=== PATIENT | male | born 1985 | race Caucasian/White ===

== ENCOUNTER 2017-02-18 17:39 | Emergency (ER) | payer OTHER ==
[~2017-02-18 17:39] MED LIST: BENZ1TAB PO; HALO1TAB25 PO
[2017-02-18 19:28] LABS: AMPHETAMINE, URINE NEG (NEG); BARBITURATES, URINE NEG (NEG); COCAINE, URINE POS (NEG)
[2017-02-18 19:56] LABS: AUTOMATED NEUTROPHIL # 3.3 TH/MM3 (1.8-7.7); BASOPHIL % 0.6 % (0.0-2.0); EOSINOPHIL # 0.2 TH/MM3 (0-0.4); EOSINOPHIL % 3.1 % (0.0-4.0); HEMATOCRIT 42.8 % (39.0-51.0); HEMO FLAGS DIFF FINAL; LYMPHOCYTE # 2.2 TH/MM3 (1.0-4.8); MEAN CELL VOLUME 92.8 FL (80.0-100.0); MEAN CORPUSCULAR HEMOGLOBIN 31.8 PG (27.0-34.0); MEAN CORPUSCULAR HGB CONC 34.3 % (32.0-36.0); MONO % 11.8 % (0.0-8.0); NEUT % 50.5 % (16.0-70.0); PLATELET COUNT 258 TH/MM3 (150-450); RED BLOOD COUNT 4.61 MIL/MM3 (4.50-5.90); RED CELL DISTRIBUTION WIDTH 14.1 % (11.6-17.2); WHITE BLOOD COUNT 6.5 TH/MM3 (4.0-11.0)
[2017-02-18 20:15] LABS: ANION GAP 5 MEQ/L (5-15)
[2017-02-18 20:18] LABS: ACETAMINOPHEN LESS THAN 2.0 MCG/ML (10.0-30.0); ALKALINE PHOSPHATASE 61 U/L (45-117); ALT (GPT) 23 U/L (12-78); AST (GOT) 18 U/L (15-37); BICARBONATE 30.7 MEQ/L (21.0-32.0); BLOOD UREA NITROGEN 8 MG/DL (7-18); CHLORIDE 106 MEQ/L (98-107); GLOMERULAR FILTRATION RATE 72 ML/MIN (>89); POTASSIUM 5.2 MEQ/L (3.5-5.1); SODIUM (NA) 142 MEQ/L (136-145); TOTAL BILIRUBIN ADULT 0.6 MG/DL (0.2-1.0)
--- NOTE | 2017-02-18 20:41 | PD ---
HPI Chief Complaint: Psychiatric Symptoms Time Seen by Provider: 20:35 Travel History International Travel<30 days: No Contact w/Intl Traveler<30days: No Traveled to known affect area: No History of Present Illness HPI 32-year-old male that presents to the ED for evaluation of psych. Patient was EXPARTE secondary to noncompliance and having a history of substance abuse. Patient denies any of this and states that he has no issues. My physical examination he is under the covers and he would not really speak to me much. He will answer yes or no questions however. He denies any other medical problems. He does state that he did drank alcohol recently. Per EXPARTE he has been using cocaine and other drugs. Denies any chest pain or shortness of breath. Other medical process. He does apparently has a history of schizoaffective disorder and is to take medications for this but apparently he is noncompliant. He is also apparently acting bizarre but again history is limited as patient will not be forthcoming with information to me. He denies any suicidal or homicidal ideation to me. PFSH Past Medical History Depression: Yes Diminished Hearing: No Psychiatric: Yes Schizophrenia: No (LISTED IN PMH BUT PT DENIES) Past Surgical History Other Surgery: Yes (skin grafts in childhood) Social History Alcohol Use: Yes (social use, nothing recent) Tobacco Use: Yes ("now and then") Substance Use: Yes (records indicate hx PSA, patient denies anything recent) Allergies-Medications (Allergen,Severity, Reaction): Coded Allergies: No Known Allergies (Verified , 03/23/11) Reported Meds & Prescriptions Reported Meds & Active Scripts Active Reported Haldol (Haloperidol) 2 Mg Tab 2 Mg PO BID Cogentin (Benztropine Mesylate) 1 Mg Tab 1 Mg PO BID Review of Systems Except as stated in HPI: all other systems reviewed are Neg Physical Exam Narrative GENERAL: SKIN: Warm and dry. HEAD: Atraumatic. Normocephalic. EYES: Pupils equal and round. No scleral icterus. No injection or drainage. ENT: No nasal bleeding or discharge. Mucous membranes pink and moist. Tongue is midline. No uvula deviation. NECK: Trachea midline. No JVD. CARDIOVASCULAR: Regular rate and rhythm. No murmurs, S3, S4. RESPIRATORY: No accessory muscle use. Clear to auscultation. Breath sounds equal bilaterally. GASTROINTESTINAL: Abdomen soft, non-tender, nondistended. Hepatic and splenic margins not palpable. MUSCULOSKELETAL: Extremities without clubbing, cyanosis, or edema. No obvious deformities. Full range of motion of the upper and lower extremities bilaterally. 2+ pulses bilaterally. NEUROLOGICAL: Awake and alert. No obvious cranial nerve deficits. Motor grossly within normal limits. Five out of 5 muscle strength in the arms and legs. Normal speech. PSYCHIATRIC: Appropriate mood and affect; insight and judgment normal. Data Data Orders Complete Blood Count With Diff (02/18/17 19:01) Comprehensive Metabolic Panel (02/18/17 19:) Psych Screen (02/18/17 19:) Drug Screen, Random Urine (02/18/17:) Alcohol (Ethanol) (02/18/17 19:) Salicylates (Aspirin) (02/18/17 19:) Tylenol (Acetaminophen) (02/18/17 19:) Labs Laboratory Tests Test 02/18/17 02/18/17 17:49 19:30 Urine Opiates Screen NEG Urine Barbiturates Screen NEG Urine Amphetamines Screen NEG Urine Benzodiazepines Screen NEG Urine Cocaine Screen POS Urine Cannabinoids Screen POS White Blood Count 6.5 TH/MM3 Red Blood Count 4.61 MIL/MM3 Hemoglobin 14.7 GM/DL Hematocrit 42.8 % Mean Corpuscular Volume 92.8 FL Mean Corpuscular Hemoglobin 31.8 PG Mean Corpuscular Hemoglobin 34.3 % Concent Red Cell Distribution Width 14.1 % Platelet Count 258 TH/MM3 Mean Platelet Volume 7.7 FL Neutrophils (%) (Auto) 50.5 % Lymphocytes (%) (Auto) 34.0 % Monocytes (%) (Auto) 11.8 % Eosinophils (%) (Auto) 3.1 % Basophils (%) (Auto) 0.6 % Neutrophils # (Auto) 3.3 TH/MM3 Lymphocytes # (Auto) 2.2 TH/MM3 Monocytes # (Auto) 0.8 TH/MM3 Eosinophils # (Auto) 0.2 TH/MM3 Basophils # (Auto) 0.0 TH/MM3 CBC Comment DIFF FINAL Differential Comment Salicylates Level 3.0 MG/DL MDM Medical Decision Making Medical Screen Exam Complete: Yes Emergency Medical Condition: Yes Medical Record Reviewed: Yes Interpretation(s) CBC Diagram 02/18/17 19:30 tox screen positive for cocaine and benzos CMP WNL Differential Diagnosis Depression versus suicidal ideation versus anxiety versus adjustment disorder versus mood disorder versus bipolar disorder versus schizophrenia versus paranoid disorder versus psychosis versus substance abuse versus alcohol abuse versus alcohol induced psychosis versus homicidality addition versus cutting versus personality disorder Narrative Course 32-year-old male that presents to the ED for evaluation of psych. Patient was properly examined and was found to have signs and symptoms consistent appears to be psychiatric illness. No sign of acute medical distress. Patient was medically cleared. Okay to be seen by psych. Mental health screening was discussed with the patient. Diagnosis Primary Impression: Schizoaffective disorder Qualified Code: F25.8 - Other schizoaffective disorders Additional Impression: Substance abuse Alek Camacho Feb 18, 2017 20:41
[2017-02-19 02:27] VITALS: BP 139/60; PULSE 80; RESP 16; O2SAT 100
[2017-02-19 06:29] VITALS: BP 110/65; PULSE 52; RESP 17; O2SAT 97
[2017-02-19] MEDS ORDERED: BENZ1TAB PO (11:37)
[2017-02-19] MEDS ORDERED: HALO10TA PO (11:37)
[2017-02-19 13:05] VITALS: BP 126/61; PULSE 55; RESP 18
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
[2017-02-19 20:58] VITALS: BP 112/63; PULSE 55; RESP 16; O2SAT 97
== END 2017-02-19 21:15 ==
LOC: NEDAMB 17:39 → NEPJ 02-19 21:15
DX: F20.9 Schizophrenia, unspecified (principal); F17.210 Nicotine dependence, cigarettes, uncomplicated; Z91.19 Patient's noncompliance with other medical treatment and regimen
CPT/HCPCS: 80053; 80307; 85025; 99285

== ENCOUNTER 2017-05-29 12:45 | Inpatient (IN) | payer BC ==
[~2017-05-29] VITALS: Ht 175.3 cm; Wt 59.4 kg
[~2017-05-29 12:45] MED LIST changes: +HALO10TA PO; -HALO1TAB25 PO
[2017-05-29 13:04] VITALS: BP 122/63; PULSE 65; RESP 19; TEMP 98.8; O2SAT 97
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
[2017-05-29] MEDS ORDERED: SODIUM CHLORIDE 0.9% FLUSH 10 ML FLUSH IVF PRN (13:15)
[2017-05-29 13:17] VITALS: BP_SYST 122; BP_SYST 128; BP_DIAS 63; BP_DIAS 65; O2SAT 98
[2017-05-29 13:44] LABS: AUTOMATED NEUTROPHIL # 7.2 TH/MM3 (1.8-7.7); BASOPHIL % 0.3 % (0.0-2.0); EOSINOPHIL # 0.1 TH/MM3 (0-0.4); EOSINOPHIL % 1.1 % (0.0-4.0); HEMATOCRIT 46.1 % (39.0-51.0); HEMO FLAGS DIFF FINAL; LYMPH % 20.3 % (9.0-44.0); MEAN CELL VOLUME 92.1 FL (80.0-100.0); MEAN CORPUSCULAR HEMOGLOBIN 31.8 PG (27.0-34.0); MEAN CORPUSCULAR HGB CONC 34.5 % (32.0-36.0); MONO % 6.3 % (0.0-8.0); PLATELET COUNT 255 TH/MM3 (150-450); RED BLOOD COUNT 5.01 MIL/MM3 (4.50-5.90); RED CELL DISTRIBUTION WIDTH 13.2 % (11.6-17.2); WHITE BLOOD COUNT 9.9 TH/MM3 (4.0-11.0)
[2017-05-29 13:54] LABS: APTT (PATIENT) 28.5 SEC (24.3-30.1); PROTHROMBIN TIME - PATIENT 10.8 SEC (9.8-11.6)
[2017-05-29 13:55] LABS: AMPHETAMINE, URINE NEG (NEG); BARBITURATES, URINE NEG (NEG); COCAINE, URINE NEG (NEG)
[2017-05-29 14:02] LABS: ANION GAP 10 MEQ/L (5-15); AST (GOT) 15 U/L (15-37); BLOOD UREA NITROGEN 9 MG/DL (7-18); CHLORIDE 102 MEQ/L (98-107); GLOMERULAR FILTRATION RATE 87 ML/MIN (>89); POTASSIUM 3.6 MEQ/L (3.5-5.1); SODIUM (NA) 137 MEQ/L (136-145)
[2017-05-29 14:08] LABS: ALKALINE PHOSPHATASE 89 U/L (45-117); ALT (GPT) 15 U/L (12-78); TOTAL BILIRUBIN ADULT 1.2 MG/DL (0.2-1.0)
[2017-05-29 14:09] LABS: CREATINE KINASE 95 U/L (39-308)
--- NOTE | 2017-05-29 14:18 | RADRPT ---
EXAM DATE/TIME: 05/29/2017 13:16 [facility] COMPARISON: No previous studies available for comparison. INDICATIONS : Chest pain. MEDICAL HISTORY : None. SURGICAL HISTORY : None. ENCOUNTER: Initial ACUITY: 1 day PAIN SCORE: 10 LOCATION: Bilateral chest FINDINGS: 2 AP views of the chest demonstrate normal-sized cardiac silhouette. Lungs are hyperinflated. No effu smita, consolidation, or pneumothorax is visualized. The bones and soft tissues demonstrate no acute f inding. CONCLUSION: No acute cardiopulmonary abnormality is identified. Nino Tran MD on May 29, 2017 at 14:15 Board Certified Radiologist. This report was verified electronically.
[2017-05-29] MEDS ORDERED: diphenhydrAMINE HCL 50 MG CAP PO ONE (23:45)
[2017-05-30 02:24] VITALS: BP 100/51; PULSE 60; RESP 18; O2SAT 97
[2017-05-30 06:30] VITALS: BP 118/55; PULSE 61; RESP 18; O2SAT 98
[2017-05-30 10:32] VITALS: BP 116/68; PULSE 69; RESP 18
--- NOTE | 2017-05-30 12:17 | EKG ---
Date Performed: 05/29/2017 Time Performed: 13:04:24 PTAGE: 32 years EKG: Sinus rhythm Since previous tracing, no significant change noted NORMAL ECG PREVIOUS TRACING : 03/17/2004 16.48 DOCTOR: Hernan Lynch Interpretating Date/Time 05/30/2017 12:15:47
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
[2017-05-30] MEDS ORDERED: ALUMINUM/MAGNESIUM/SIMETH 30 ML CUP PO PRN (14:00)
[2017-05-30] MEDS ORDERED: ACETAMINOPHEN 325 MG TAB PO PRN (14:00)
[2017-05-30] MEDS ORDERED: MAGNESIUM HYDROXIDE SUSP 30 ML CUP PO PRN (14:00)
[2017-05-30 14:45] VITALS: BP 98/61; PULSE 56; RESP 16; TEMP 98.6; O2SAT 96
[2017-05-30] MEDS ORDERED: LORazepam 2 MG/ML VIAL IM PRN ×2 (16:00→16:15)
[2017-05-30] MEDS ORDERED: LORazepam 1 MG TAB PO PRN (16:00)
[2017-05-30] MEDS ORDERED: LORazepam 0.5 MG TAB PO PRN (16:00)
[2017-05-30] MEDS ORDERED: HALOPERIDOL 10 MG TAB PO SCH (21:00)
[2017-05-30] MEDS ORDERED: BENZTROPINE MESYLATE 1 MG TAB PO SCH (21:00)
[2017-05-31 05:34] VITALS: BP 83/51; PULSE 54; RESP 18; TEMP 97.6; O2SAT 95
[2017-05-31] MEDS ORDERED: HALOPERIDOL 10 MG TAB PO SCH (09:00)
[2017-05-31] MEDS ORDERED: BENZTROPINE MESYLATE 1 MG TAB PO SCH (09:00)
[2017-05-31 09:54] LABS: ANION GAP 7 MEQ/L (5-15); BICARBONATE 28.4 MEQ/L (21.0-32.0); BLOOD UREA NITROGEN 19 MG/DL (7-18); CHLORIDE 105 MEQ/L (98-107); GLOMERULAR FILTRATION RATE 69 ML/MIN (>89); SODIUM (NA) 140 MEQ/L (136-145)
[2017-05-31 09:57] LABS: HDL CHOLESTEROL 45.8 MG/DL (40.0-60.0); LDL CHOLESTEROL 140 MG/DL (0-99)
--- NOTE | 2017-05-31 10:39 | HHI.HP ---
Provisional Diagnosis Admission Date May 30, 2017 at 13:56 [place] I. Adjustment disorder with depressed mood, R/o malingering [place] II. Unspecified personality disorder, antisocial personality disorder [place] III. No significant medical history Certification of Person's Competence To Provide Express and Informed Consent I have personally examined Seb Rojas II , a person being served at [facility] on, May 31, 2017 10:22. Express and informed consent means consent voluntarily given in writing, by a competent person, after sufficient explanation and disclosure of the subject matter involved to enable the person to make a knowing and willful decision without any element of force, fraud, deceit, duress, or other form of constraint or coercion. This person is 18 years of age or older, is not now known to be incompetent to consent to treatment with a guardian advocate, and does not have a health care surrogate or proxy currently making medical treatment decisions. I have found this person to be one of the following: [X] Competent to provide express and informed consent, as defined above, for voluntary admission to this facility and is competent to provide express and informed consent for treatment. He/she has the consistent capacity to make well reasoned, willful, and knowing decisions concerning his or her medical or mental health treatment. The person fully and consistently understands the purpose of the admission for examination/placement and is fully capable of personally exercising all rights assured under [place] [] Incompetent to provide express and informed consent to voluntary admission, and this is incompetent to provide express and informed consent to treatment. The person must be transferred to involuntary status and a petition for a guardian advocate filed with the Circuit Court. [] Refusing to provide express and informed consent to voluntary admission but is competent to provide express and informed consent for treatment. The person must be discharged or transferred to involuntary status. Form shall be completed within 24 hours of a person's arrival at the receiving facility and filed in the clinical record of each person: 1. Admitted on a voluntary basis 2. Permitted to provide express and informed consent to his/her own treatment 3. Allowed to transfer from involuntary to voluntary status 4. Prior to permitting a person to consent to his or her own treatment after having been previously found incompetent to consent to treatment. History of Present Illness Capacity: Has Capacity HPI ER documentation : 32-year-old male with history of depression and schizophrenia on a voluntary basis here with complaints of chest pain and recent onset of suicidal ideation. Ed documentation is reviewed and included in this report " Patient says that he just all of a sudden started thinking that it would be best if he jumped off of a bridge or hung himself. He tells me that he does not want to harm himself, therefore he decided to come to the emergency department for evaluation. He also reports that he had problems with intermittent chest pain, and thinks it's more so in the back of his lungs. This is been going on for the past 4 years. Tells me that the pain is always present and deep within his rib cage. He describes it as a sharp pain in the left sided rib cage without further radiation. He denies any nausea, vomiting, shortness of breath or diaphoresis. Here with his power of trademark attorney.I personally spoke to the Power of Tour Driver, who says he may be gaining guardianship over this patient again. Apparently patient has been under his care for the past 15 years. Patient's father and patient had no other relatives. He does have a daughter, but she does not live locally. Patient has suffered from schizophrenia and psychotic episodes, but per power of trademark attorney he is never reported thoughts of self-harm. Apparently he has to hold power of trademark attorney that he has walked to the [place] on several occasions in thought of jumping off, but has not done so. In regards this chest pain, power of trademark attorney has no information other than patient has been complaining about this for quite some time. Patient is a known drug user. Power of trademark attorney states that he may have most recently used drugs within the past 2 months. Apparently had a binge of cocaine and blue through $12,000 in 8 days. Patient no longer has access to his funds to purchase drugs, but does have many friends who visit him and may very well provide various substances." EMR is reviewed. [place] [facility] [place] 2002 with several hospitalizations under the care of Dr Sullivan as well as Dr. Torres. The patient was monitored in J pod and he did not present any behavioral concerns and no suicidality. He is calm. Speech is clear and logical. he is initially non cooperative with examination responding " i don't have to tell you about my whole life and my story". It was explained to him that in order to make a determination of his safety I needed to have answers to several questions as well as that I needed to have information from his POA. He then agrees to engage in examination. He denies that he is suicidal at this time. He states that he came to the hospital because he was having chest pain and he " said things I should not have said. I was having a bad d ay that's all. I was also having a bad day since it was the birthday of my ex fiancee". He denies any hallucinations.Reports medication compliance. Denies current substance use and current toxicology is negative. he contracts for safety if he were to be discharged.I spoke with his POA Tour Driver Sincere Ruff who reports that he is very concerned for the safety of this patient as he has told him that he has walked to to the middle of a bridge five times in the past month and that last noc he actually got on top of the bridge. he has also reported that he has been having thoughts of hanging himself. he goes on to state " If you release him from the hospital and something were to happen to him I will personally cholo you as well as cholo the hospital ". The patient is a 32-year-old man, domiciled alone, single, unemployed , with psychiatric history of schizophrenia, multiple psychiatric hospitalizations, he has outpatient care with Dr. Mckeon, he is on Haldol 10 mg at bedtime, benztropine 1 mg twice a day, previous suicidal attempts, history of multiple incarcerations "due to drug issues", nose and medical medical history, who was admitted in voluntary basis due to suicidal ideation. On psychiatric evaluation today patient states that he is ready to go back home. He described his mood as very good, he says that yesterday he expressed suicidal ideation in the ER "because I wanted to expedite my medical care and a wanted the doctors to [place] up, but I did not have any suicidal intentions". When patient was confronted about using suicidal ideation to manipulate the system he says that he knows very well the system "because he has been hospitalized multiple times, I have been in [facility] over 10 times and I know what to say in ER in order to get attention faster". At this moment the patient denies suicidal and homicidal ideation, he denies visual and auditory hallucinations. No paranoia, no delusions, no bizarre behavior or thoughts, no agitation or aggressive behavior reported or noted. Review of Systems Constitutional: DENIES: Diaphoretic episodes, Fatigue, Fever, Weight gain, Weight loss, Chills, Dizziness, Change in appetite, Night Sweats Endocrine: DENIES: Heat/cold intolerance, Polydipsia, Polyuria, Polyphagia Eyes: DENIES: Blurred vision, Diplopia, Eye inflammation, Eye pain, Vision loss , Photosensitivity, Double Vision Ears, nose, mouth, throat: DENIES: Tinnitus, Hearing loss, Vertigo, Nasal discharge, Oral lesions, Throat pain, Hoarseness, Ear Pain, Running Nose, Epistaxis, Sinus Pain, Toothache, Odynophagia Respiratory: DENIES: Apneas, Cough, Snoring, Wheezing, Hemoptysis, Sputum production, Shortness of breath Cardiovascular: DENIES: Chest pain, Palpitations, Syncope, Dyspnea on Exertion , PND, Lower Extremity Edema, Orthopnea, Claudication Gastrointestinal: DENIES: Abdominal pain, Black stools, Bloody stools, Constipation, Diarrhea, Nausea, Vomiting, Difficulty Swallowing, Anorexia Genitourinary: DENIES: Sexual dysfunction, Urinary frequency, Urinary incontinence, Urgency, Hematuria, Dysuria, Nocturia, Penile Discharge, Testicular Pain, Testicular Swelling Musculoskeletal: DENIES: Joint pain, Muscle aches, Stiffness, Joint Swelling, Back pain, Neck pain Hematologic/lymphatic: DENIES: Bruising, Lymphadenopathy Neurologic: DENIES: Abnormal gait, Headache, Localized weakness, Paresthesias, Seizures, Speech Problems, Tremor, Poor Balance Psychiatric: DENIES: Anxiety, Confusion, Mood changes, Depression, Hallucinations, Agitation, Suicidal Ideation, Homicidal Ideation, Delusions Substance Abuse History Drugs/Alcohol past 12 months Patient denies the use of alcohol and illicit drugs Past Family Social History Coded Allergies: No Known Allergies (Verified , 05/30/17) Reported Medications Benztropine 1 Mg Tab1 Mg PO DAILY #30 TAB Ref 0 02/19/17 Haloperidol 10 Mg Tab15 Mg PO DAILY Ref 0 02/19/17 Current Medications Medications (Trade) Dose Ordered Sig/[place] Route Start Time Stop Time Status Last Admin (NS Flush) 2 ml UNSCH PRN IVF 05/29/17 13:15 (Tylenol) 650 mg Q4H PRN PO 05/30/17 14:00 (Milk Of Magnesia Liq) 30 ml DAILY PRN PO 05/30/17 14:00 (Mag-Al Plus Susp Liq) 30 ml Q6H PRN PO 05/30/17 14:00 (Ativan) 1 mg Q6H PRN PO 05/30/17 16:00 (Ativan Inj) 1 mg Q6H PRN IM 05/30/17 16:00 (Haldol) 10 mg HS PO 05/30/17 21:00 05/30/17 21:02 (Cogentin) 1 mg HS PO 05/30/17 21:00 05/30/17 21:02 (Ativan) 0.5 mg Q12H PRN PO 05/30/17 16:00 (Ativan Inj) 0.5 mg Q12H PRN IM 05/30/17 16:15 (Cogentin) 1 mg DAILY PO 05/31/17 09:00 (Haldol) 15 mg DAILY PO 05/31/17 09:00 Family History Patient denies family psychiatric history Social History Patient was born and raised in [facility], he lives alone in [place], he is single, unemployed, his highest level of education is fifth grade Patient's Strengths (min. 2) Verbal communication Physical Exam No psychomotor agitation or retardation, no tremors, no withdrawal, no stiffness , no gait disturbance noted Vital Signs Vital Signs Date Time Temp Pulse Resp B/P Pulse Ox O2 Delivery O2 Flow Rate FiO2 05/31/17 05:34 97.6 54 18 83/51 95 05/30/17 10:32 Room Air Lab Results Laboratory Tests Test 05/29/17 05/29/17 05/29/17 13:15 13:20 16:45 White Blood Count 9.9 Red Blood Count 5.01 Hemoglobin 15.9 Hematocrit 46.1 Mean Corpuscular Volume 92.1 Mean Corpuscular Hemoglobin 31.8 Mean Corpuscular Hemoglobin 34.5 Concent Red Cell Distribution Width 13.2 Platelet Count 255 Mean Platelet Volume 7.4 Neutrophils (%) (Auto) 72.0 Lymphocytes (%) (Auto) 20.3 Monocytes (%) (Auto) 6.3 Eosinophils (%) (Auto) 1.1 Basophils (%) (Auto) 0.3 Neutrophils # (Auto) 7.2 Lymphocytes # (Auto) 2.0 Monocytes # (Auto) 0.6 Eosinophils # (Auto) 0.1 Basophils # (Auto) 0.0 CBC Comment DIFF FINAL Differential Comment Prothrombin Time 10.8 Prothromb Time International 1.0 Ratio Activated Partial 28.5 Thromboplast Time Sodium Level 137 Potassium Level 3.6 Chloride Level 102 Carbon Dioxide Level 25.0 Anion Gap 10 Blood Urea Nitrogen 9 Creatinine 0.99 Estimat Glomerular Filtration 87 Rate Random Glucose 82 Calcium Level 8.9 Magnesium Level 2.0 Total Bilirubin 1.2 Aspartate Amino Transf 15 (AST/SGOT) Alanine Aminotransferase 15 (ALT/SGPT) Alkaline Phosphatase 89 Total Creatine Kinase 95 Troponin I LESS THAN 0.02 LESS THAN 0.02 Total Protein 7.6 Albumin 4.3 Lipase 102 Ethyl Alcohol Level LESS THAN 3 Urine Opiates Screen NEG Urine Barbiturates Screen NEG Urine Amphetamines Screen NEG Urine Benzodiazepines Screen NEG Urine Cocaine Screen NEG Urine Cannabinoids Screen NEG Diagnosis Mental Status Examination Appearance man, [facility], age appearing, calm and cooperative Speech: Unremarkable Orientation: x3 Memory: Unremarkable Thought Process: Logical Thought Content: Unremarkable Hallucination Type: None Attention and Concentration: Good Suicidal Ideation: No Previous Suicide Attempts: No Homicidal Ideation: No Previous Homicide Attempts: No Insight: Good Affect: Good Mood: Appropriate Motor Activity: Normal gait Assessment & Plan Problem List: (1) Schizophrenia Assessment & Plan: At the moment of my evaluation today the patient does not present any significant, acute or concerning symptomatology of depression, anxiety, [place] or psychosis. Patient is logical, coherent and relevant. He is oriented 3, without attention deficit or cognitive impairment. Patient doesn' t present any agitation or aggressive behavior at this moment. He denies suicidal and homicidal ideation. He denies visual and auditory hallucinations. Patient expressed that his recent suicidal ideation expressed in the ER were done with the intentions of manipulating the system and getting medical attention faster. He clarifies that he did that because he knows the system due to his multiple previous incarcerations and hospitalizations. On longitudinal observation patient has been calm, cooperative, no problematic in the unit. Last night he requested his dose of Haldol and benztropine and this morning he was the first asking for his breakfast in the unit, as per nurses. There is no evidence to is state that this is a clear case of malicious simulation most probably related with an underlying, not diagnosed personality pathology. He definitely doesn't need psychiatric admission at this moment. Extensive psychoeducation were provided. He will continue psychiatric care as an outpatient with outpatient psychiatrist. ICD Code: F20.9 Assessment & Plan Estimated LOS: days Problem Qualifiers (1) Schizophrenia: Qualified Code: F20.3 - Undifferentiated schizophrenia Adriel Villatoro MD May 31, 2017 10:39
[2017-05-31 12:35] LABS: HEMOGLOBIN A1a 1.2 %; HEMOGLOBIN A1b 1.8 %; HEMOGLOBIN Ao 85.3 %; HEMOGLOBIN LA1C 2.2 %; HEMOGLOBIN P3 3.6 %
== END 2017-05-31 10:45 | disposition home or self-care (01) | DRG 885 ==
LOC: NEPD 12:45 → NEDA 05-30 13:56 → H260 05-30 14:45
PROVIDERS: ADMIT Psychiatry & Neurology Psychiatry; ATTEND Psychiatry & Neurology Psychiatry
DX: F20.3 Undifferentiated schizophrenia (principal); F32.9 Major depressive disorder, single episode, unspecified; F17.210 Nicotine dependence, cigarettes, uncomplicated; R07.89 Other chest pain
CPT/HCPCS: 71010; 80048; 80053; 80061; 80307; 82550; 83036; 83690; 83735; 84484; 85025; 85610; 85730; 93005; Q0163

== ENCOUNTER 2018-04-01 23:02 | Inpatient (IN) | payer BC ==
[~2018-04-01] VITALS: Ht 170.2 cm; Wt 59.8 kg
[2018-04-01 23:11] VITALS: BP 143/89; PULSE 109; PULSE 111; RESP 20; TEMP 97.9; O2SAT 94; O2SAT 95
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
[2018-04-01 23:49] LABS: AUTOMATED NEUTROPHIL # 3.7 TH/MM3 (1.8-7.7); BASOPHIL # 0.1 TH/MM3 (0-0.2); BASOPHIL % 1.1 % (0.0-2.0); EOSINOPHIL # 0.1 TH/MM3 (0-0.4); EOSINOPHIL % 1.5 % (0.0-4.0); HEMATOCRIT 47.6 % (39.0-51.0); HEMOGLOBIN 16.7 GM/DL (13.0-17.0); LYMPH % 28.6 % (9.0-44.0); LYMPHOCYTE # 1.8 TH/MM3 (1.0-4.8); MEAN CELL VOLUME 96.4 FL (80.0-100.0); MEAN CORPUSCULAR HEMOGLOBIN 33.8 PG (27.0-34.0); MEAN PLATELET VOLUME 7.2 FL (7.0-11.0); MONOCYTE # 0.6 TH/MM3 (0-0.9); NEUT % 58.8 % (16.0-70.0); PLATELET COUNT 296 TH/MM3 (150-450); RED BLOOD COUNT 4.93 MIL/MM3 (4.50-5.90); RED CELL DISTRIBUTION WIDTH 14.4 % (11.6-17.2); WHITE BLOOD COUNT 6.3 TH/MM3 (4.0-11.0)
[2018-04-02 00:12] LABS: ALT (GPT) 100 U/L (12-78); AST (GOT) 133 U/L (15-37); BLOOD UREA NITROGEN 7 MG/DL (7-18); CALCIUM 8.7 MG/DL (8.5-10.1); CHLORIDE 104 MEQ/L (98-107); CREATININE 0.98 MG/DL (0.60-1.30); GLOMERULAR FILTRATION RATE 87 ML/MIN (>89); GLUCOSE,RANDOM 92 MG/DL (74-106); SODIUM (NA) 142 MEQ/L (136-145)
[2018-04-02 00:22] LABS: ALKALINE PHOSPHATASE 82 U/L (45-117); TOTAL BILIRUBIN ADULT 2.1 MG/DL (0.2-1.0); TOTAL PROTEIN 7.4 GM/DL (6.4-8.2)
[2018-04-02 05:02] VITALS: BP 132/79; PULSE 16; PULSE 79; RESP 16; O2SAT 98
[2018-04-02] MEDS ORDERED: LORazepam 0.5 MG TAB PO PRN (07:45)
[2018-04-02] MEDS ORDERED: LORazepam 2 MG/ML VIAL IM PRN ×2 (07:45)
[2018-04-02] MEDS ORDERED: LORazepam 2 MG TAB PO PRN (07:45)
[2018-04-02] MEDS ORDERED: ALUMINUM/MAGNESIUM/SIMETH 30 ML CUP PO PRN (07:45)
[2018-04-02] MEDS ORDERED: LORazepam 2 MG/ML VIAL IV PUSH PRN ×4 (07:45)
[2018-04-02] MEDS ORDERED: FLUMAZENIL 0.5 MG/5 ML VIAL IV PUSH PRN (07:45)
[2018-04-02] MEDS ORDERED: LORazepam 1 MG TAB PO PRN ×2 (07:45)
[2018-04-02] MEDS ORDERED: HALOPERIDOL LACTATE 5 MG/ML AMP IM PRN (07:45)
[2018-04-02] MEDS ORDERED: MAGNESIUM HYDROXIDE SUSP 30 ML CUP PO PRN (07:45)
[2018-04-02] MEDS ORDERED: ACETAMINOPHEN 325 MG TAB PO PRN (07:45)
[2018-04-02] MEDS ORDERED: HALOPERIDOL 5 MG TAB PO SCH (09:00)
[2018-04-02 10:10] VITALS: BP 144/93; PULSE 66; RESP 17; TEMP 98
[2018-04-02] MEDS: NICOTINE 21 MG/24 HR PATCH T-DERMAL SCH (12:52)
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
[2018-04-03 06:20] VITALS: BP 130/75; PULSE 68; RESP 17; TEMP 97.4
--- NOTE | 2018-04-03 09:26 | HHI.PYPN ---
Subjective Remarks Chart reviewed and discussed with nursing staff. Night staff reports that patient urinated and defecated all over the room and was walking about naked. He needed frequent redirection. This morning he was sitting in his room on the floor making hand motions in the air. He is internally stimulated. He is refusing to talk to me or his nurse Gris, RN. He is refusing to eat , but will take in fluids. Avoids eye contact and talking to himself. Mental Status Examination Appearance: Appropriate Consciousness: Alert, Other (refusing to make eye contact or respond to questions ) Orientation: Person (makes a gesture when you call his name and will say "what " ) Motor Activity: Normal gait Speech: Hesitant Language: [place] Fund of Knowledge: Adequate Attention and Concentration: Easily Distracted Memory: Impaired (unable to assess as patient will not engage in conversation) Mood: Angry, Irritable Affect: Irritable Thought Process & Associations: Loose associations, Disorganized Thought Content: Bizarre thinking, Hallucinations, Delusional Hallucination Type: Auditory, Visual Delusion Type: Bizarre, Paranoid Suicidal Ideation: No Suicidal Plan: No Suicidal Intention: No Homicidal Ideation: No Homicidal Plan: No Homicidal Intention: No Insight: Poor Judgment: Poor Results Vitals/IOs Vital Signs Date Time Temp Pulse Resp B/P (MAP) Pulse Ox O2 Delivery O2 Flow Rate FiO2 04/03/18 06:20 97.4 68 17 130/75 (93) 04/02/18 05:02 98 Room Air Assessment & Plan Problem List: (1) Schizophrenia ICD Codes: F20.9 - Schizophrenia, unspecified Status: Acute Assessment & Plan Patient is internally stimulated, Talking to himself. Avoiding eye contact. Has been defecating all over his room. Sitting cross legged on the floor and making hand gestures while talking. Estimated LOS: days Justification for Cont. Inpt. Moving patient to a lower level of care may result in his decompensation. Leigh Wu April 03, 2018 09:26
[2018-04-03] MEDS ORDERED: HALOPERIDOL LACTATE 5 MG/ML AMP IM SCH (10:15)
[2018-04-03] MEDS: HALOPERIDOL 5 MG TAB PO SCH ×2 (12:23→21:09)
[2018-04-03] MEDS: NICOTINE 21 MG/24 HR PATCH T-DERMAL SCH (12:53)
[2018-04-03] MEDS: clonazePAM 0.5 MG TAB PO SCH ×2 (15:53→21:09)
[2018-04-03 18:17] VITALS: BP 127/80; PULSE 98; RESP 18; TEMP 97.8; O2SAT 97
[2018-04-03] MEDS: REMOVE OLD NICODERM (NICOTINE) PATCH T-DERMAL SCH (21:09)
[2018-04-04 06:16] VITALS: BP 112/57; PULSE 59; RESP 18; TEMP 98.3; O2SAT 100
[2018-04-04] MEDS: HALOPERIDOL 5 MG TAB PO SCH ×2 (08:54→20:43)
[2018-04-04] MEDS: clonazePAM 0.5 MG TAB PO SCH ×2 (08:54→20:42)
[2018-04-04] MEDS: NICOTINE 21 MG/24 HR PATCH T-DERMAL SCH (09:00)
--- NOTE | 2018-04-04 14:58 | PD.PSY.CON ---
Provisional Diagnosis Admission Date April 02, 2018 at 07:44 [place]. 1. Schizophrenia, paranoid type, acute exacerbation 2. Polysubstance abuse [place]. Deferred History of Present Illness Service Psychiatry Consult Requested By Dr. Villatoro Reason for Consult Second opinion for involuntary psychiatric hospitalization Primary Care Physician No Primary Care Physician HPI From Dr. Villatoro's H&P: The patient is a 33-year-old man, domiciled in [facility] with a roommate , single, unemployed, he has psychiatric history of schizophrenia, alcohol and cocaine use disorder, multiple psychiatric hospitalizations, last hospitalization here in [place] in 2017, documentation was reviewed, history of aggressive behavior, noncompliance, no significant medical history, who presents emergency department under an EX PARTE initiated by his power of finance attorney due to visual and auditory hallucinations, erratic behavior, not taking medications the patient here denies any suicidal or homicidal ideation. EMR was reviewed. The case was discussed with nurse in charge. Utox Akash, BAL 138. On psychiatric evaluation I find the patient that is secluded in his room. Initially very irritable, oppositional, then with redirection he is able to answer my questions, but he seems to be quite suspicious, internally preoccupied and paranoid. Patient is looking constantly to my pen and to my writing as a write. He seems to be quite unpredictable. He says that he is very upset and he does not want to be here. He reports that the police brought him here just to check his blood. "I do not need anything more than having my blood check and then you need to go, I do not need to see any psychiatrist". Patient has to be redirected multiple times in order to make him talk. He reports to be in a good mood, he denies depressive symptoms, he denies anxiety, he denies visual and auditory hallucinations, denies suicidal enemas ideation. The patient is oriented 3. He is very insightless regarding his psychiatric history, he says that he does not have psychiatric problems. He reports that he uses alcohol just sometimes. I confronted him regarding his U tox positive for cocaine, he became verbally hostile stating that he does not use cocaine. As per nurses, the patient has been acting erratically in the unit, laughing inappropriately, talking to himself, walking back and forth. On my examination today, 04/04: Patient seen and examined with nurse. Chart reviewed. Case discussed with nursing staff. On my examination today, the patient reports that he has a history of schizophrenia but is "healed now." Patient presents as quite disheveled and there is feces smeared on the bed and on the floor. He denies any suicidal or homicidal ideation but seems unreliable to contract for safety. He denies audiovisual hallucinations but appears internally stimulated. Paranoia is present. Mood is described as "okay." Remainder of the psychiatric ROS is negative. No acute physical complaints. Past psychiatric history: Patient reports a history of schizophrenia. He reports a history of previous psychiatric admissions, although he is somewhat evasive on the details. He denies any history of suicide attempts. Family history: Patient denies any family history of mental illness. Chemical dependency history: Patient reports that he smokes cigarettes and has the occasional beer. He provides no explanation for the cocaine found in his urine. Social history: The patient reports that he has 1/5 grade education. He collects an inheritance. He is single with one daughter. Review of Systems ROS Limitations: Psychotic, Poor Historian Except as stated in HPI: all other systems reviewed are Neg Past Family Social History Coded Allergies: No Known Allergies (Verified , 05/30/17) Past Medical History See electronic medical record Discontinued Reported Medications Benztropine (Benztropine) 1 Mg Tab, 1 MG PO DAILY, #30 TAB 0 Refills 02/19/17 Haloperidol (Haloperidol) 10 Mg Tab, 15 MG PO DAILY, TAB 0 Refills 02/19/17 Current Medications Medications (Trade) Dose Ordered Sig/[place] Route Start Time Stop Time Status Last Admin (Ativan) 1 mg Q6H PRN PO 04/02/18 07:45 (Ativan Inj) 1 mg Q6H PRN IM 04/02/18 07:45 (Ativan) 0.5 mg Q12H PRN PO 04/02/18 07:45 (Ativan Inj) 0.5 mg Q12H PRN IM 04/02/18 07:45 (Tylenol) 650 mg Q4H PRN PO 04/02/18 07:45 (Milk Of Magnesia Liq) 30 ml DAILY PRN PO 04/02/18 07:45 (Mag-Al Plus Susp Liq) 30 ml Q6H PRN PO 04/02/18 07:45 (Habitrol 21 Mg Patch.24 Hr) 1 patch DAILY T-DERMAL 04/02/18 09:00 04/03/18 12:53 (Romazicon Inj) 0.2 mg Q1M PRN IV PUSH 04/02/18 07:45 (Ativan) 1 mg Q4H PRN PO 04/02/18 07:45 04/03/18 01:46 (Ativan Inj) 1 mg Q4H PRN IV PUSH 04/02/18 07:45 (Ativan) 2 mg Q2H PRN PO 04/02/18 07:45 (Ativan Inj) 2 mg Q2H PRN IV PUSH 04/02/18 07:45 (Ativan Inj) 2 mg Q1H PRN IV PUSH 04/02/18 07:45 (Ativan Inj) 2 mg Q15M PRN IV PUSH 04/02/18 07:45 (Haldol Inj) 5 mg STAT PRN IM 04/02/18 07:45 Future hold (Haldol) 5 mg BID PO 04/03/18 10:15 04/04/18 08:54 (KlonoPIN) 0.5 mg BID PO 04/03/18 13:45 04/04/18 08:54 Miscellaneous Information 1 HS T-DERMAL 04/03/18 21:00 Patient's Strengths (min. 2) In a monitored setting. Verbally fluent. Physical Exam Physical exam completed by ED provider. On my examination today, patient appears to be in no acute physical distress. No motor abnormalities noted. No signs of intoxication or withdrawal noted. Labs and vitals reviewed: Vital Signs Vital Signs Date Time Temp Pulse Resp B/P (MAP) Pulse Ox O2 Delivery O2 Flow Rate FiO2 04/04/18 06:16 98.3 59 18 112/57 (75) 100 04/02/18 05:02 Room Air Lab Results Laboratory Tests Test 04/01/18 23:15 04/02/18 06:20 White Blood Count 6.3 TH/MM3 Red Blood Count 4.93 MIL/MM3 Hemoglobin 16.7 GM/DL Hematocrit 47.6 % Mean Corpuscular Volume 96.4 FL Mean Corpuscular Hemoglobin 33.8 PG Mean Corpuscular Hemoglobin Concent 35.0 % Red Cell Distribution Width 14.4 % Platelet Count 296 TH/MM3 Mean Platelet Volume 7.2 FL Neutrophils (%) (Auto) 58.8 % Lymphocytes (%) (Auto) 28.6 % Monocytes (%) (Auto) 10.0 % Eosinophils (%) (Auto) 1.5 % Basophils (%) (Auto) 1.1 % Neutrophils # (Auto) 3.7 TH/MM3 Lymphocytes # (Auto) 1.8 TH/MM3 Monocytes # (Auto) 0.6 TH/MM3 Eosinophils # (Auto) 0.1 TH/MM3 Basophils # (Auto) 0.1 TH/MM3 CBC Comment DIFF FINAL Differential Comment Blood Urea Nitrogen 7 MG/DL Creatinine 0.98 MG/DL Random Glucose 92 MG/DL Total Protein 7.4 GM/DL Albumin 4.0 GM/DL Calcium Level 8.7 MG/DL Alkaline Phosphatase 82 U/L Aspartate Amino Transf (AST/SGOT) 133 U/L Alanine Aminotransferase (ALT/SGPT) 100 U/L Total Bilirubin 2.1 MG/DL Sodium Level 142 MEQ/L Potassium Level 3.7 MEQ/L Chloride Level 104 MEQ/L Carbon Dioxide Level 24.0 MEQ/L Anion Gap 14 MEQ/L Estimat Glomerular Filtration Rate 87 ML/MIN Thyroid Stimulating Hormone 3rd Gen 1.820 uIU/ML Ethyl Alcohol Level 138 MG/DL Urine Opiates Screen NEG Urine Barbiturates Screen NEG Urine Amphetamines Screen NEG Urine Benzodiazepines Screen NEG Urine Cocaine Screen POS Urine Cannabinoids Screen NEG Transaminitis noted. Mental Status Examination Appearance: Disheveled, Malodorous Consciousness: Alert Orientation: Person (At least) Motor Activity: Normal gait Speech: Hesitant, Slow Language: Adequate Fund of Knowledge: Adequate Attention and Concentration: Easily Distracted Memory: Impaired (Suspect psychosis interferes) Mood: Other (Calm) Affect: Blunt Thought Process & Associations: Circumstantial Thought Content: Hallucinations, Delusional Hallucination Type: Other (Internally stimulated) Delusion Type: Paranoid Suicidal Ideation: No (Unreliable to contract for safety) Homicidal Ideation: No Insight: Poor Judgment: Poor Assessment & Plan Problem List: (1) Schizophrenia ICD Codes: F20.9 - Schizophrenia, unspecified Status: Acute Assessment & Plan Continue Haldol as ordered. Patient would likely benefit from a larger dose of Haldol, and I will check an EKG for QTC before further titrating this agent. Check LFTs in the morning to follow up transaminitis. Continue to monitor on the high acuity unit. Continue other medications and care as ordered. Discharge Planning As ordered by primary psychiatrist Problem Qualifiers (1) Schizophrenia: Qualified Codes: F20.0 - Paranoid schizophrenia Sincere Sheikh MD April 04, 2018 14:58
--- NOTE | 2018-04-04 17:27 | EKG ---
Date Performed: 04/04/2018 Time Performed: 16:51:41 PTAGE: 33 years EKG: Sinus rhythm POSSIBLE RIGHT VENTRICULAR CONDUCTION DELAY BORDERLINE ECG PREVIOUS TRACING : 05/29/2017 13.04 No change from previous tracing noted. DOCTOR: Waldo Valentine Interpretating Date/Time 04/04/2018 17:27:23
[2018-04-04] MEDS: REMOVE OLD NICODERM (NICOTINE) PATCH T-DERMAL SCH (20:43)
[2018-04-05 06:16] VITALS: BP 108/57; PULSE 59; RESP 18; TEMP 97.9; O2SAT 100
[2018-04-05] MEDS: clonazePAM 0.5 MG TAB PO SCH ×2 (08:42→20:37)
[2018-04-05] MEDS: NICOTINE 21 MG/24 HR PATCH T-DERMAL SCH (08:42)
[2018-04-05] MEDS: HALOPERIDOL 5 MG TAB PO SCH (08:42)
--- NOTE | 2018-04-05 12:03 | HHI.PYPN ---
Subjective Remarks Patient seen for follow, chart reviewed. Discussion nursing staff reported the patient with episodes of staring, internally preoccupied, bizarre behavior, exit seeking, states that he is here testing of medications. Patient was found staring into the nurse's station but to be internally preoccupied. Patient states that that he "cracked a couple of meds to see if they are good for their families". Patient to be somewhat paranoid during interview, reports sleeping well, eating and drinking well denies any perceptional services although noted to be internally preoccupied. Patient denies any delusions. Patient states that he had not been taking medications prior to his admission stated he did not need them "as I just drink" which she reports drinking 312 packs daily, denies any marijuana use recently and denies any cocaine use although U tox positive for cocaine. Currently his mood is "good". Review of Systems Except as stated in HPI: all other systems reviewed are Neg Mental Status Examination Appearance: Disheveled, Malodorous Consciousness: Alert Orientation: Person (At least) Motor Activity: Normal gait Speech: Hesitant, Slow Language: Adequate Fund of Knowledge: Adequate Attention and Concentration: Easily Distracted Memory: Impaired (Suspect psychosis interferes) Mood: Other (Calm) Affect: Flat Thought Process & Associations: Circumstantial Thought Content: Hallucinations (Denies today although noted to be internally preoccupied), Delusional Hallucination Type: Other (Internally stimulated) Delusion Type: Paranoid Suicidal Ideation: No (Unreliable to contract for safety) Homicidal Ideation: No Insight: Poor Judgment: Poor Results Vitals/IOs Vital Signs Date Time Temp Pulse Resp B/P (MAP) Pulse Ox O2 Delivery O2 Flow Rate FiO2 04/05/18 06:16 97.9 59 18 108/57 (74) 100 04/02/18 05:02 Room Air Assessment & Plan Problem List: (1) Schizophrenia ICD Codes: F20.9 - Schizophrenia, unspecified Status: Acute Assessment & Plan Patient this time continues to be acutely psychotic, disorganized behavior, making nonsensical statements. We will increase Haldol to 5 mg a.m./10 mg at bedtime, continue rest of medications, continue monitor mood and behavior. Discharge planning in progress. Justification for Cont. Inpt. At risk of further decompensation a lower level of care. Discharge Planning To be determined. Problem Qualifiers (1) Schizophrenia: Qualified Codes: F20.0 - Paranoid schizophrenia Magdiel Zepeda MD April 05, 2018 12:03
[2018-04-05 18:09] VITALS: BP 112/69; PULSE 64; RESP 18; TEMP 98; O2SAT 98
[2018-04-05] MEDS ORDERED: HALOPERIDOL 10 MG TAB PO SCH (21:00)
[2018-04-05] MEDS: REMOVE OLD NICODERM (NICOTINE) PATCH T-DERMAL SCH (21:00)
[2018-04-06 06:50] VITALS: BP 105/59; PULSE 59; RESP 18; TEMP 97.9; O2SAT 98
[2018-04-06] MEDS: clonazePAM 0.5 MG TAB PO SCH ×2 (08:24→21:40)
[2018-04-06] MEDS: NICOTINE 21 MG/24 HR PATCH T-DERMAL SCH (08:24)
[2018-04-06] MEDS ORDERED: HALOPERIDOL 5 MG TAB PO SCH (09:00)
--- NOTE | 2018-04-06 12:03 | HHI.PYPN ---
Subjective Remarks Patient seen for follow, chart reviewed. Discussion nursing staff reported the patient noted to be internally preoccupied, noted to be standing and staring at nurses station for long periods of time, compliant with medications. Patient was found sitting in her room staring at a book, did not respond to being addressed verbally until real estate underwriter cut with a close proximity and was noted to be very concrete along with thought blocking internally preoccupied. Patient states that his mood has been "good" reports sleeping well, eating well on difficulty bowel movement. Patient noted to be somewhat irritable when asked about what he was reading stating "it is private" as well as noted to have some drawings on the floor of his bedroom but was not interested in explaining her speaking about this. Patient and asked treatment team to leave the room. Review of Systems Except as stated in HPI: all other systems reviewed are Neg Mental Status Examination Appearance: Disheveled, Malodorous Consciousness: Alert Orientation: Person (At least) Motor Activity: Normal gait Speech: Hesitant, Slow Language: Adequate Fund of Knowledge: Adequate Attention and Concentration: Easily Distracted Memory: Impaired (Suspect psychosis interferes) Mood: Other (Calm) Affect: Flat Thought Process & Associations: Circumstantial Thought Content: Hallucinations (Denies today although noted to be internally preoccupied), Thought blocking, Delusional Hallucination Type: Other (Internally stimulated) Delusion Type: Paranoid Suicidal Ideation: No (Unreliable to contract for safety) Suicidal Plan: No Suicidal Intention: No Homicidal Ideation: No Homicidal Plan: No Homicidal Intention: No Insight: Poor Judgment: Poor Results Vitals/IOs Vital Signs Date Time Temp Pulse Resp B/P (MAP) Pulse Ox O2 Delivery O2 Flow Rate FiO2 04/06/18 06:50 97.9 59 18 105/59 (74) 98 Assessment & Plan Problem List: (1) Schizophrenia ICD Codes: F20.9 - Schizophrenia, unspecified Status: Acute Assessment & Plan Patient this time continues to be acutely psychotic, internally preoccupied, disorganized. We will continue to increase Haldol to 10 mg twice daily for psychosis, continue with medications. Continue monitor mood and behavior. Discharge planning in progress. Justification for Cont. Inpt. At risk of further decompensation a lower level care. Discharge Planning To be determined. Problem Qualifiers (1) Schizophrenia: Qualified Codes: F20.0 - Paranoid schizophrenia Magdiel Zepeda MD April 06, 2018 12:03
[2018-04-06 17:47] VITALS: BP 117/58; PULSE 86; RESP 18; TEMP 97.8; O2SAT 98
[2018-04-06] MEDS: REMOVE OLD NICODERM (NICOTINE) PATCH T-DERMAL SCH (21:00)
[2018-04-06] MEDS: HALOPERIDOL 10 MG TAB PO SCH (21:40)
[2018-04-07 05:59] VITALS: BP 114/58; PULSE 78; RESP 18; TEMP 97.6
[2018-04-07] MEDS: NICOTINE 21 MG/24 HR PATCH T-DERMAL SCH ×2 (08:42→09:00)
[2018-04-07] MEDS: HALOPERIDOL 10 MG TAB PO SCH ×2 (08:42→20:40)
[2018-04-07] MEDS: clonazePAM 0.5 MG TAB PO SCH ×2 (08:42→20:40)
[2018-04-07 09:01] LABS: ALBUMIN 3.5 GM/DL (3.4-5.0); AST (GOT) 52 U/L (15-37); BICARBONATE 29.1 MEQ/L (21.0-32.0); BLOOD UREA NITROGEN 13 MG/DL (7-18); CHLORIDE 103 MEQ/L (98-107); GLOMERULAR FILTRATION RATE 96 ML/MIN (>89); GLUCOSE,RANDOM 79 MG/DL (74-106); SODIUM (NA) 140 MEQ/L (136-145)
[2018-04-07 09:03] LABS: CHOLESTEROL 161 MG/DL (120-200); DIRECT BILIRUBIN ADULT 0.2 MG/DL (0.0-0.2); TRIGLYCERIDES 56 MG/DL (42-150)
[2018-04-07 09:06] LABS: ALKALINE PHOSPHATASE 61 U/L (45-117); ALT (GPT) 86 U/L (12-78); CHOLESTEROL/ HDL RATIO 2.23 RATIO; HDL CHOLESTEROL 71.9 MG/DL (40.0-60.0); INDIRECT BILIRUBIN 0.8 MG/DL (0.0-0.8); LDL CHOLESTEROL 78 MG/DL (0-99); TOTAL PROTEIN 6.6 GM/DL (6.4-8.2)
--- NOTE | 2018-04-07 11:35 | HHI.PYPN ---
Subjective Remarks Patient seen for follow, chart reviewed. Discussion nursing staff reported the patient yesterday was laughing inappropriately talking about drugs and making inappropriate sexual comments to nurse. Patient was found heavily on the unit noted to be irritable and refusing extended interview. Patient states feeling "tired" reports sleeping well mentioning that he would like to go be discharged so he can go smoke a cigarette and when offered nicotine patch patient became visibly upset and glaring at chief underwriter. When asked about encounter yesterday which she was reading a book he states that it was the Bible reading "revelations" and appearing to be coming agitated but was able to retract and apologize and refused to continue further questioning in interview. Review of Systems Except as stated in HPI: all other systems reviewed are Neg Mental Status Examination Appearance: Disheveled Consciousness: Alert Orientation: Person (At least) Motor Activity: Normal gait Speech: Slow Language: Adequate Fund of Knowledge: Adequate Attention and Concentration: Easily Distracted Memory: Impaired (Suspect psychosis interferes) Mood: Other (Calm) Affect: Flat Thought Process & Associations: Other ([place]) Thought Content: Hallucinations (Denies today although noted to be internally preoccupied), Thought blocking, Delusional Hallucination Type: Other (Internally stimulated) Delusion Type: Paranoid Suicidal Ideation: No (Unreliable to contract for safety) Suicidal Plan: No Suicidal Intention: No Homicidal Ideation: No Homicidal Plan: No Homicidal Intention: No Insight: Poor Judgment: Poor Results Labs labs reviewed Test 04/07/18 07:00 Blood Urea Nitrogen 13 MG/DL Creatinine 0.90 MG/DL Random Glucose 79 MG/DL Total Protein 6.6 GM/DL Albumin 3.5 GM/DL Calcium Level 9.0 MG/DL Alkaline Phosphatase 61 U/L Aspartate Amino Transf (AST/SGOT) 52 U/L Alanine Aminotransferase (ALT/SGPT) 86 U/L Total Bilirubin 1.0 MG/DL Direct Bilirubin 0.2 MG/DL Sodium Level 140 MEQ/L Potassium Level 4.3 MEQ/L Chloride Level 103 MEQ/L Carbon Dioxide Level 29.1 MEQ/L Anion Gap 8 MEQ/L Estimat Glomerular Filtration Rate 96 ML/MIN Indirect Bilirubin 0.8 MG/DL Triglycerides Level 56 MG/DL Cholesterol Level 161 MG/DL LDL Cholesterol 78 MG/DL HDL Cholesterol 71.9 MG/DL Cholesterol/HDL Ratio 2.23 RATIO Vitals/IOs Vital Signs Date Time Temp Pulse Resp B/P (MAP) Pulse Ox O2 Delivery O2 Flow Rate FiO2 04/07/18 05:59 97.6 78 18 114/58 (76) 04/06/18 17:47 98 Assessment & Plan Problem List: (1) Schizophrenia ICD Codes: F20.9 - Schizophrenia, unspecified Status: Acute Assessment & Plan Patient this time continues to be noted to be internally preoccupied, low frustration tolerance with interview, easily agitated, compliant with treatment. Difficult to ascertain thorough evaluation and thought content at this patient unable to tolerate long periods of time for interview. Patient continues to be noted to be internally preoccupied. We will increase Haldol to 10 mg p.o. a.m./50 mg at bedtime for psychosis, continue rest of medications. Continue to monitor mood and behavior. Discharge planning in progress. Justification for Cont. Inpt. At risk of further decompensation a lower level of care. Discharge Planning To be determined. Problem Qualifiers (1) Schizophrenia: Qualified Codes: F20.0 - Paranoid schizophrenia Magdiel Zepeda MD April 07, 2018 11:35
[2018-04-07 16:48] LABS: HEMOGLOBIN A1C 4.8 % (4.3-6.0)
--- NOTE | 2018-04-07 18:17 | RADRPT ---
EXAM DATE: 04/07/2018 6:15 PM EDT AGE/SEX: 33 years / Male INDICATIONS: Drastic change in mentation. History of drug use. CLINICAL DATA: This is the patient's initial encounter. Patient reports that signs and symptoms have been present for 1 day and indicates a pain score of 0/10. MEDICAL/SURGICAL HISTORY: . Schizophrenia. None. RADIATION DOSE: 38.01 CTDI (mGy) COMPARISON: No prior [facility] exams available for comparison. TECHNIQUE: CT of the head without contrast. Using automated exposure control and adjustment of the mA and/or kV according to patient size, radiation dose was kept as low as reasonably achievable to ob tain optimal diagnostic quality images. FINDINGS: Cerebrum: The ventricles are normal for age. No evidence of midline shift, mass lesion, hemorrhage or acute infarction. No extraaxial fluid collections are seen. Posterior Fossa: The cerebellum and brainstem are intact. The 4th ventricle is midline. The cerebe llopontine angle is unremarkable. Extracranial: The visualized portion of the orbits is intact. Skull: The calvaria is intact. No evidence of skull fracture. CONCLUSION: 1. Unremarkable CT scan of the brain. Electronically signed by: Ricki Humphries MD 04/07/2018 6:16 PM EDT
[2018-04-07] MEDS: REMOVE OLD NICODERM (NICOTINE) PATCH T-DERMAL SCH (20:40)
[2018-04-08 06:15] VITALS: BP 108/59; PULSE 63; RESP 16; TEMP 97.7; O2SAT 99
[2018-04-08] MEDS: clonazePAM 0.5 MG TAB PO SCH ×2 (08:27→20:41)
[2018-04-08] MEDS: NICOTINE 21 MG/24 HR PATCH T-DERMAL SCH (08:30)
[2018-04-08] MEDS ORDERED: HALOPERIDOL 10 MG TAB PO SCH (09:00)
[2018-04-08] MEDS ORDERED: PILL SPLITTER OTHER PRN (14:30)
[2018-04-08 18:03] VITALS: BP 106/65; PULSE 83; RESP 17; TEMP 97.7; O2SAT 99
[2018-04-08] MEDS: HALOPERIDOL 10 MG TAB PO SCH (20:41)
[2018-04-08] MEDS: REMOVE OLD NICODERM (NICOTINE) PATCH T-DERMAL SCH (20:42)
--- NOTE | 2018-04-08 22:01 | HHI.PYPN ---
Subjective Remarks Patient seen for follow up; chart reviewed. Discussion nursing staff reported the patient has a cooperative compliant medications noted B sitting hallway during the day disorganized, denying any perceptual disturbances or suicidal ideations. Patient was found heavily on the unit continue to be noted to be having thought blocking, speech delay appearing internally preoccupied, giving limited and concrete answers to questioning no spontaneous speech. Patient presented to mental health court today which patient was kept under involuntary hospitalization this petition was granted. Testimony by patient's power of attorney lawyer reported serious self-care deficits and provided testimony of patient' s living situation as being in uninhabitable due to psychosis. Patient also has a long history of state hospitalization and history of violent behavior. Review of Systems Except as stated in HPI: all other systems reviewed are Neg Mental Status Examination Appearance: Disheveled Consciousness: Alert Orientation: Person (At least) Motor Activity: Normal gait Speech: Slow Language: Adequate Fund of Knowledge: Adequate Attention and Concentration: Easily Distracted Memory: Impaired (Suspect psychosis interferes) Mood: Other (Calm) Affect: Flat Thought Process & Associations: Other ([place]) Thought Content: Hallucinations (Denies today although noted to be internally preoccupied), Thought blocking, Delusional Hallucination Type: Other (Internally stimulated) Delusion Type: Paranoid Suicidal Ideation: No (Unreliable to contract for safety) Suicidal Plan: No Suicidal Intention: No Homicidal Ideation: No Homicidal Plan: No Homicidal Intention: No Insight: Poor Judgment: Poor Results Vitals/IOs Vital Signs Date Time Temp Pulse Resp B/P (MAP) Pulse Ox O2 Delivery O2 Flow Rate FiO2 04/08/18 18:03 97.7 83 17 106/65 (79) 99 Assessment & Plan Problem List: (1) Schizophrenia ICD Codes: F20.9 - Schizophrenia, unspecified Status: Acute Assessment & Plan Patient this time has a compliant with treatment continues and noted be very psychotic, internally preoccupied, responding to internal stimuli. Due to patient's continued psychosis as well as recent testimony by patient's power of attorney lawyer of patient's recent decompensation and severity of his inability to care for self, we will request a packet for state hospitalization as patient may require long-term stabilization. We will continue to titrate patient's Haldol for psychosis. We will continue to monitor mood and behavior. Discharge planning in progress. Justification for Cont. Inpt. At risk of further composition at lower level of care. Discharge Planning Referral to [facility]. Problem Qualifiers (1) Schizophrenia: Qualified Codes: F20.0 - Paranoid schizophrenia Magdiel Zepeda MD April 08, 2018 22:01
[2018-04-09 06:16] VITALS: BP 105/59; PULSE 79; RESP 18; TEMP 97.2; O2SAT 100
[2018-04-09] MEDS: clonazePAM 0.5 MG TAB PO SCH ×2 (09:03→20:48)
[2018-04-09] MEDS: NICOTINE 21 MG/24 HR PATCH T-DERMAL SCH (09:03)
[2018-04-09] MEDS: HALOPERIDOL 10 MG TAB PO SCH ×2 (09:04→20:48)
--- NOTE | 2018-04-09 18:24 | HHI.PYPN ---
Subjective Remarks Patient seen for follow-up, chart reviewed. Discussion nursing staff reported the patient continued with thought blocking, cooperative with staff, denies SI or HI. Patient was found lying hospital bed asleep was able to wake up to interact with interview. Patient stated he is feeling "good" continues to give very patient continues to be noted to have poverty of thought. When asked about his thoughts on this was given by the court from his power of county attorney concerning his living quarters patient states that he believes his home is fine with no insight into his recent deficits for self-care. Patient denies any SI, HI, or perceptual disturbances. Review of Systems Except as stated in HPI: all other systems reviewed are Neg Mental Status Examination Appearance: Disheveled Consciousness: Alert Orientation: Person (At least) Motor Activity: Normal gait Speech: Slow Language: Adequate Fund of Knowledge: Adequate Attention and Concentration: Easily Distracted Memory: Impaired (Suspect psychosis interferes) Mood: Other (Calm) Affect: Flat Thought Process & Associations: Other ([place]) Thought Content: Hallucinations (Denies today although noted to be internally preoccupied), Thought blocking, Delusional Hallucination Type: Other (Internally stimulated) Delusion Type: Paranoid Suicidal Ideation: No (Unreliable to contract for safety) Suicidal Plan: No Suicidal Intention: No Homicidal Ideation: No Homicidal Plan: No Homicidal Intention: No Insight: Poor Judgment: Poor Results Vitals/IOs Vital Signs Date Time Temp Pulse Resp B/P (MAP) Pulse Ox O2 Delivery O2 Flow Rate FiO2 04/09/18 06:16 97.2 79 18 105/59 (74) 100 Assessment & Plan Problem List: (1) Schizophrenia ICD Codes: F20.9 - Schizophrenia, unspecified Status: Acute Assessment & Plan Patient at this time continues to be acutely psychotic, disorganized, with poverty of thought and appear internally preoccupied. We will continue current treatment. Continue monitor mood and behavior. Referral to state hospital will be requested. Discharge planning a progress. Justification for Cont. Inpt. At risk of further decompensation at lower level of care. Discharge Planning Referral to state hospital. Problem Qualifiers (1) Schizophrenia: Qualified Codes: F20.0 - Paranoid schizophrenia Magdiel Zepeda MD Apr 09, 2018 18:24
[2018-04-09 18:59] VITALS: BP 109/51; PULSE 72; RESP 18; TEMP 98.2; O2SAT 99
[2018-04-09] MEDS: REMOVE OLD NICODERM (NICOTINE) PATCH T-DERMAL SCH (20:48)
[2018-04-10 06:14] VITALS: BP 106/59; PULSE 65; RESP 16; TEMP 97.7; O2SAT 100
[2018-04-10] MEDS: HALOPERIDOL 10 MG TAB PO SCH ×2 (08:16→20:37)
[2018-04-10] MEDS: clonazePAM 0.5 MG TAB PO SCH ×2 (08:17→20:36)
[2018-04-10] MEDS: NICOTINE 21 MG/24 HR PATCH T-DERMAL SCH (08:20)
--- NOTE | 2018-04-10 15:46 | HHI.PYPN ---
Subjective Remarks Patient was seen and case discussed with nursing. Patient has poor insight into his behavior. He claims he never used cocaine. He blames his document review attorney for his actions. He denies any auditory or visual hallucinations. No delusions were elicited. He denies suicidal or homicidal ideation intent or plan. Compliant with medication Mental Status Examination Appearance: Disheveled Consciousness: Alert Orientation: Person (At least) Motor Activity: Normal gait Speech: Slow Language: Adequate Fund of Knowledge: Adequate Attention and Concentration: Easily Distracted Memory: Impaired (Suspect psychosis interferes) Mood: Other (Calm) Affect: Flat Thought Process & Associations: Other ([place]) Thought Content: Hallucinations (Denies today although noted to be internally preoccupied), Thought blocking, Delusional Hallucination Type: Other (Internally stimulated) Delusion Type: Paranoid Suicidal Ideation: No (Unreliable to contract for safety) Suicidal Plan: No Suicidal Intention: No Homicidal Ideation: No Homicidal Plan: No Homicidal Intention: No Insight: Poor Judgment: Poor Results Vitals/IOs Vital Signs Date Time Temp Pulse Resp B/P (MAP) Pulse Ox O2 Delivery O2 Flow Rate FiO2 04/10/18 06:14 97.7 65 16 106/59 (75) 100 Assessment & Plan Problem List: (1) Schizophrenia ICD Codes: F20.9 - Schizophrenia, unspecified Status: Acute Assessment & Plan Continue current treatment plan Justification for Cont. Inpt. Patient would decompensate in a less restrictive setting Problem Qualifiers (1) Schizophrenia: Qualified Codes: F20.0 - Paranoid schizophrenia Kody Calvert DO Apr 10, 2018 15:46
[2018-04-10 17:54] VITALS: BP 126/69; PULSE 93; RESP 17; TEMP 97.9; O2SAT 99
[2018-04-10] MEDS: REMOVE OLD NICODERM (NICOTINE) PATCH T-DERMAL SCH (21:00)
[2018-04-11 06:17] VITALS: BP 101/53; PULSE 65; RESP 18; TEMP 98.1; O2SAT 97
[2018-04-11] MEDS: clonazePAM 0.5 MG TAB PO SCH ×2 (08:05→21:00)
[2018-04-11] MEDS: NICOTINE 21 MG/24 HR PATCH T-DERMAL SCH (08:06)
[2018-04-11] MEDS: HALOPERIDOL 10 MG TAB PO SCH ×2 (08:06→21:00)
--- NOTE | 2018-04-11 10:24 | HHI.PYPN ---
Subjective Remarks Patient is markedly more paranoid today. His thoughts are very disjointed. Patient says that the police are stealing the gifts that other people have given him for his "work." He then states that is because of all the terrorism in the world and subsequently everyone in [place] suicidal. Responding to internal stimuli throughout the day. Quite agitated Mental Status Examination Appearance: Disheveled Consciousness: Alert Orientation: Person (At least) Motor Activity: Normal gait Speech: Slow Language: Adequate Fund of Knowledge: Adequate Attention and Concentration: Easily Distracted Memory: Impaired (Suspect psychosis interferes) Mood: Other (Calm) Affect: Irritable, Labile Thought Process & Associations: Other ([place]) Thought Content: Hallucinations (Denies today although noted to be internally preoccupied), Thought blocking, Delusional Hallucination Type: Other (Internally stimulated) Delusion Type: Bizarre, Paranoid Suicidal Ideation: No (Unreliable to contract for safety) Suicidal Plan: No Suicidal Intention: No Homicidal Ideation: No Homicidal Plan: No Homicidal Intention: No Insight: Poor Judgment: Poor Results Vitals/IOs Vital Signs Date Time Temp Pulse Resp B/P (MAP) Pulse Ox O2 Delivery O2 Flow Rate FiO2 04/11/18 06:17 98.1 65 18 101/53 (69 97 Assessment & Plan Problem List: (1) Schizophrenia ICD Codes: F20.9 - Schizophrenia, unspecified Status: Acute Assessment & Plan Continue current treatment plan Justification for Cont. Inpt. Patient would decompensate in a less restrictive setting Problem Qualifiers (1) Schizophrenia: Qualified Codes: F20.0 - Paranoid schizophrenia Kody Calvert DO Apr 11, 2018 10:24
[2018-04-11 16:00] VITALS: BP 107/58; PULSE 80; RESP 18; TEMP 98; O2SAT 97
[2018-04-11] MEDS: REMOVE OLD NICODERM (NICOTINE) PATCH T-DERMAL SCH (21:00)
[2018-04-12 06:26] VITALS: BP 104/59; PULSE 68; RESP 16; TEMP 97.7; O2SAT 100
[2018-04-12] MEDS: clonazePAM 0.5 MG TAB PO SCH ×2 (08:38→21:41)
[2018-04-12] MEDS: NICOTINE 21 MG/24 HR PATCH T-DERMAL SCH (08:40)
[2018-04-12] MEDS: HALOPERIDOL 10 MG TAB PO SCH ×2 (08:40→21:42)
--- NOTE | 2018-04-12 09:50 | PD.TTN ---
Patient Problems 1. Discharge planning 2. Medication compliance 3. Knowledge deficit 4. Lack of coping skills Progress Toward Goals Provider Present: Dr. Julia Zepeda Provider Input: Will initiate state referral today, titrating meds Psychiatric Counselors Present: Jarod Bajwa Jr., [facility] Psych Therapist Input: Pt actively psychotic needs further stabilzation. Group Spec/RT/OT/BENOIT Present: OC Lopez Group Spec/RT/OT/BENOIT Input: Attends some groups Jarod Bajwa Jr, DIRECTOR OF PERSONNEL Apr 12, 2018 09:50
[2018-04-12 17:10] VITALS: BP 132/56; PULSE 88; RESP 18; TEMP 98; O2SAT 98
--- NOTE | 2018-04-12 18:47 | HHI.PYPN ---
Subjective Remarks Patient seen for follow, chart reviewed. Discussion nursing staff reported the patient was moved to a different room and had become upset and during group activity may become agitated and had to be removed from the group as well due to threatening behavior. Patient was found lying hospital bed with covers over his head using to have any eye contact during interview, stating that he is upset that he was removed from his room stating he preferred to have his privacy. Patient states that his weekend went "good" stating having felt a little bit of anger but did not elaborate why. Patient states he is eating and drinking well with adequate bowel movement no adverse drug reactions from current treatment regimen. Patient currently denies any perceptional services although continues to be noted to be internally preoccupied. Patient continues to have disorganized behavior at times. Review of Systems Except as stated in HPI: all other systems reviewed are Neg Mental Status Examination Appearance: Disheveled Consciousness: Alert Orientation: Person (At least) Motor Activity: Normal gait Speech: Slow Language: Adequate Fund of Knowledge: Adequate Attention and Concentration: Easily Distracted Memory: Impaired (Suspect psychosis interferes) Mood: Other ("Fine") Affect: Flat Thought Process & Associations: Other ([place]) Thought Content: Hallucinations (Denies today although noted to be internally preoccupied), Thought blocking, Delusional Hallucination Type: Other (Internally stimulated) Delusion Type: Bizarre, Paranoid Suicidal Ideation: No (Unreliable to contract for safety) Suicidal Plan: No Suicidal Intention: No Homicidal Ideation: No Homicidal Plan: No Homicidal Intention: No Insight: Poor Judgment: Poor Results Vitals/IOs Vital Signs Date Time Temp Pulse Resp B/P (MAP) Pulse Ox O2 Delivery O2 Flow Rate FiO2 04/12/18 17:10 98.0 88 18 132/56 (81) 98 Assessment & Plan Problem List: (1) Schizophrenia ICD Codes: F20.9 - Schizophrenia, unspecified Status: Acute Assessment & Plan Patient this time continues to be noted to be acutely psychotic, disorganized, responding to internal stimuli, minimal interaction with peers or staff, mostly isolative, with able to tolerate being around a group as he displayed agitation which she had to be removed from groups today. We will continue to increase Haldol to 50 mg a.m./2 mg at bedtime for psychosis, continue rest of medications. Continue monitor mood and behavior. Request for referral to [facility] hospitalization started. Discharge planning in progress. Justification for Cont. Inpt. At risk of further decompensation a lower level care. Discharge Planning [facility]erral to state hospital Problem Qualifiers (1) Schizophrenia: Qualified Codes: F20.0 - Paranoid schizophrenia Magdiel Zepeda MD Apr 12, 2018 18:47
[2018-04-12] MEDS: REMOVE OLD NICODERM (NICOTINE) PATCH T-DERMAL SCH (21:00)
[2018-04-13 06:12] VITALS: BP 122/57; PULSE 64; RESP 20; TEMP 97.5; O2SAT 98
[2018-04-13] MEDS: HALOPERIDOL 10 MG TAB PO SCH ×2 (08:09→20:26)
[2018-04-13] MEDS: NICOTINE 21 MG/24 HR PATCH T-DERMAL SCH (08:09)
[2018-04-13] MEDS: clonazePAM 0.5 MG TAB PO SCH ×2 (08:09→20:26)
--- NOTE | 2018-04-13 14:32 | HHI.PYPN ---
Subjective Remarks Patient seen for follow, chart reviewed. Discussion nursing staff reported the patient continues to be noted to be internally preoccupied, at times pacing and most recently masturbating in room, and initially refused medications this morning but then later accepted his treatment. Patient was found sitting in the room noted B, cooperative. Patient noted to be more reactive today during interview able to respond appropriately with less speech delay, continues to be noted to be internally preoccupied but less so today. Patient states he had been attending groups specifically fresh air group and coffee group, reports eating and drinking well with no difficulty or bowel movement, denies any adverse drug reactions. Patient states that he is feeling "fine" and asking his approximate length of stay during this hospitalization asking if he would be released before [facility]. Patient provided with possibility of patient require longer term hospitalization such as state [facility] for discharge once psychiatrically stable which patient at that time began to become slightly irritable asking why he needed to go to [facility]. Review of Systems Except as stated in HPI: all other systems reviewed are Neg Mental Status Examination Appearance: Other (In hospital [facility]) Consciousness: Alert Orientation: Person, Place, Date/Time Motor Activity: Normal gait Speech: Slow Language: Adequate Fund of Knowledge: Adequate Attention and Concentration: Easily Distracted Memory: Impaired (Suspect psychosis interferes) Mood: Other ("Fine") Affect: Flat Thought Process & Associations: Other ([place]) Thought Content: Hallucinations (Denies today although noted to be internally preoccupied), Thought blocking, Delusional Hallucination Type: Other (Internally stimulated) Delusion Type: Bizarre, Paranoid Suicidal Ideation: No (Unreliable to contract for safety) Suicidal Plan: No Suicidal Intention: No Homicidal Ideation: No Homicidal Plan: No Homicidal Intention: No Insight: Poor Judgment: Poor Results Vitals/IOs Vital Signs Date Time Temp Pulse Resp B/P (MAP) Pulse Ox O2 Delivery O2 Flow Rate FiO2 04/13/18 06:12 97.5 64 20 122/57 (78) 98 Assessment & Plan Problem List: (1) Schizophrenia ICD Codes: F20.9 - Schizophrenia, unspecified Status: Acute Assessment & Plan Patient this time continues to be internally preoccupied, at times moments of frustration and agitation but has not had any physical aggressive behavior toward anyone of the unit. Patient has been compliant with treatment. We will continue current treatment for now continue to monitor mood and behavior. Discharge planning in progress. Justification for Cont. Inpt. At risk of further decompensation a lower level of care. Discharge Planning State referral Problem Qualifiers (1) Schizophrenia: Qualified Codes: F20.0 - Paranoid schizophrenia Magdiel Zepeda MD Apr 13, 2018 14:32
[2018-04-13 16:00] VITALS: BP 122/57; PULSE 64; RESP 20; TEMP 97.5; O2SAT 98
[2018-04-13] MEDS: REMOVE OLD NICODERM (NICOTINE) PATCH T-DERMAL SCH (20:27)
[2018-04-14 05:53] VITALS: BP 97/63; PULSE 81; RESP 16; TEMP 97.9; O2SAT 99
[2018-04-14] MEDS: NICOTINE 21 MG/24 HR PATCH T-DERMAL SCH (09:00)
[2018-04-14] MEDS: clonazePAM 0.5 MG TAB PO SCH ×2 (09:09→20:38)
[2018-04-14] MEDS: HALOPERIDOL 10 MG TAB PO SCH (09:09)
--- NOTE | 2018-04-14 15:08 | HHI.PYPN ---
Subjective Remarks Patient seen for follow up; chart reviewed. Discussion with nursing staff reported that the patient previously was snorting sugar and recently stating to staff that he was eating more salt lately. Patient prior to interview was seen on camera monitor kneeling down on his bed which appeared as if patient was snorting sugar. When entering room patient was seen with a sugar packet rolled into a tube which he quickly moved out of site. Patient was noted to be paranoid, noted to be thought blocking during interview and internally preoccupied at times. Patient was requesting to have more food, noted to be staring at the wall when asked why he was consuming more salt recently present to provide any answer. Patient states that he is showering, compliant with medications and tolerating them well with no adverse drug reactions. Patient continues to deny any perceptional services despite being noted to be internally preoccupied. Patient encouraged to participate in groups and activities which he refuses at this time. Review of Systems Except as stated in HPI: all other systems reviewed are Neg Mental Status Examination Appearance: Other (In [facility]) Consciousness: Alert Orientation: Person, Place, Date/Time Motor Activity: Normal gait Speech: Slow Language: Adequate Fund of Knowledge: Adequate Attention and Concentration: Easily Distracted Memory: Impaired (Suspect psychosis interferes) Mood: Other ("Fine") Affect: Flat Thought Process & Associations: Other ([place]) Thought Content: Hallucinations (Denies today although noted to be internally preoccupied), Thought blocking, Delusional Hallucination Type: Other (Internally stimulated) Delusion Type: Bizarre, Paranoid Suicidal Ideation: No (Unreliable to contract for safety) Suicidal Plan: No Suicidal Intention: No Homicidal Ideation: No Homicidal Plan: No Homicidal Intention: No Insight: Poor Judgment: Poor Results Vitals/IOs Vital Signs Date Time Temp Pulse Resp B/P (MAP) Pulse Ox O2 Delivery O2 Flow Rate FiO2 04/14/18 05:53 97.9 81 16 97/63 (74) 99 Assessment & Plan Problem List: (1) Schizophrenia ICD Codes: F20.9 - Schizophrenia, unspecified Status: Acute Assessment & Plan Patient this time continues with paranoid behavior internally preoccupied as well as disorganized behavior this patient was found snorting sugar packets and room today. We will continue to titrate Haldol to 20 mg p.o. twice daily for psychosis with consideration of switching to a second generation as patient appears to have limited response to current treatment. Continue monitor mood and behavior. Discharge planning in progress. Justification for Cont. Inpt. At risk of further decompensation a lower level of care. Discharge Planning State referral Problem Qualifiers (1) Schizophrenia: Qualified Codes: F20.0 - Paranoid schizophrenia Magdiel Zepeda MD Apr 14, 2018 15:08
[2018-04-14 15:18] VITALS: BP 128/64; PULSE 78; RESP 18; TEMP 97.8; O2SAT 99
--- NOTE | 2018-04-14 16:13 | PD.TTN ---
Patient Problems 1. Discharge planning 2. Medication compliance 3. Knowledge deficit 4. Lack of coping skills Progress Toward Goals Provider Present: Dr. Julia Zepeda Provider Input: Will initiate state referral today, titrating meds State referral order submitted Nurse(s) Input: Pt is not improving, continues to present as withdrawn and psychotic Psychiatric Counselors Present: Jarod Bajwa Jr., [facility] Psych Therapist Input: Pt actively psychotic needs further stabilzation. State packet is in process of being completed. Jarod left a voicemail for POA, POA has the remaining information needed to complete the state referral packet. Group Spec/RT/OT/BENOIT Present: OC Lopez Group Spec/RT/OT/BENOIT Input: Attends some groups Occupational Therapist Input: Limited group activity Jarod Bajwa Jr, SHANK STITCHER Apr 14, 2018 16:13
[2018-04-14] MEDS: HALOPERIDOL LACTATE ORAL CONC 10 MG/5 ML CUP PO SCH (20:38)
[2018-04-14] MEDS: REMOVE OLD NICODERM (NICOTINE) PATCH T-DERMAL SCH (20:39)
[2018-04-14] MEDS ORDERED: HALOPERIDOL 10 MG TAB PO SCH (21:00)
[2018-04-15 06:00] VITALS: BP 95/53; PULSE 76; RESP 16; TEMP 97.8; O2SAT 99
[2018-04-15] MEDS: HALOPERIDOL LACTATE ORAL CONC 10 MG/5 ML CUP PO SCH ×2 (08:13→20:29)
[2018-04-15] MEDS: clonazePAM 0.5 MG TAB PO SCH ×2 (08:14→20:29)
[2018-04-15] MEDS: NICOTINE 21 MG/24 HR PATCH T-DERMAL SCH (08:15)
--- NOTE | 2018-04-15 14:32 | HHI.PYPN ---
Subjective Remarks Patient seen for follow up; chart reviewed. Discussion with nursing staff reported that patient continues to be internally preoccupied, no noted behavior of snorting sugar recently. Patient was found sitting on hospital bed, noted to be flat, with concrete responses, appearing internally preoccupied with continued thought blocking but less intensity. He refused lab draw and was encouraged to comply as it is needed to start patient on clozapine which he initially agreed to but continued to refuse to allow lab draw. Operational Review Sergeant spoke with patient's POA over the phone which he agreed to provide copies of prior hospital records for review and agreed to continue to be [facility] and [place] for this admission. Review of Systems Except as stated in HPI: all other systems reviewed are Neg Mental Status Examination Appearance: Other (In [facility]) Consciousness: Alert Orientation: Person, Place, Date/Time Motor Activity: Normal gait Speech: Slow Language: Adequate Fund of Knowledge: Adequate Attention and Concentration: Easily Distracted Memory: Impaired (Suspect psychosis interferes) Mood: Other ("Fine") Affect: Flat Thought Process & Associations: Other ([place]) Thought Content: Hallucinations (Denies today although noted to be internally preoccupied), Thought blocking, Delusional Hallucination Type: Other (Internally stimulated) Delusion Type: Bizarre, Paranoid Suicidal Ideation: No (Unreliable to contract for safety) Suicidal Plan: No Suicidal Intention: No Homicidal Ideation: No Homicidal Plan: No Homicidal Intention: No Insight: Poor Judgment: Poor Results Vitals/IOs Vital Signs Date Time Temp Pulse Resp B/P (MAP) Pulse Ox O2 Delivery O2 Flow Rate FiO2 04/15/18 06:00 97.8 76 16 95/53 (67) 99 Assessment & Plan Problem List: (1) Schizophrenia ICD Codes: F20.9 - Schizophrenia, unspecified Status: Acute Assessment & Plan [place] continues with thought blocking, internally preoccupied, bizarre behavior. Refuses to allow lab draw. Continue to encourage patient to allow lab draw. Continue current treatment for now, monitor mood and behavior. Prior records pending. Discharge planning in progress. Justification for Cont. Inpt. At risk for further decompensation if at lower level of care. Problem Qualifiers (1) Schizophrenia: Qualified Codes: F20.0 - Paranoid schizophrenia Magdiel Zepeda MD Apr 15, 2018 14:32
--- NOTE | 2018-04-15 15:30 | EKG ---
Date Performed: 04/14/2018 Time Performed: 19:26:15 PTAGE: 33 years EKG: Sinus rhythm INCOMPLETE RIGHT BUNDLE BRANCH BLOCK BORDERLINE ECGSince the PREVIOUS TRACING , no significant change noted PREVIOUS TRACIN04/04/2018 16.51 DOCTOR: Martina Samayoa Interpretating Date/Time 04/15/2018 15:28:52
[2018-04-15 18:11] VITALS: BP 110/54; PULSE 82; RESP 17; TEMP 98.1; O2SAT 97
[2018-04-15] MEDS: REMOVE OLD NICODERM (NICOTINE) PATCH T-DERMAL SCH (20:29)
[2018-04-16 05:42] VITALS: BP 97/52; PULSE 65; RESP 16; TEMP 97.9; O2SAT 99
[2018-04-16] MEDS: NICOTINE 21 MG/24 HR PATCH T-DERMAL SCH (08:27)
[2018-04-16] MEDS: HALOPERIDOL LACTATE ORAL CONC 10 MG/5 ML CUP PO SCH ×2 (08:27→20:47)
[2018-04-16] MEDS: clonazePAM 0.5 MG TAB PO SCH ×2 (08:27→20:47)
[2018-04-16 09:13] LABS: AUTOMATED NEUTROPHIL # 4.7 TH/MM3 (1.8-7.7); BASOPHIL # 0.1 TH/MM3 (0-0.2); EOSINOPHIL # 0.3 TH/MM3 (0-0.4); EOSINOPHIL % 3.4 % (0.0-4.0); HEMATOCRIT 48.2 % (39.0-51.0); HEMOGLOBIN 16.7 GM/DL (13.0-17.0); LYMPHOCYTE # 1.9 TH/MM3 (1.0-4.8); MEAN CELL VOLUME 96.5 FL (80.0-100.0); MEAN CORPUSCULAR HEMOGLOBIN 33.4 PG (27.0-34.0); MEAN CORPUSCULAR HGB CONC 34.6 % (32.0-36.0); MEAN PLATELET VOLUME 7.5 FL (7.0-11.0); MONO % 8.5 % (0.0-8.0); MONOCYTE # 0.6 TH/MM3 (0-0.9); NEUT % 62.1 % (16.0-70.0); PLATELET COUNT 349 TH/MM3 (150-450); RED BLOOD COUNT 4.99 MIL/MM3 (4.50-5.90); RED CELL DISTRIBUTION WIDTH 13.9 % (11.6-17.2); WHITE BLOOD COUNT 7.6 TH/MM3 (4.0-11.0)
[2018-04-16 09:41] LABS: ALBUMIN 4.1 GM/DL (3.4-5.0); AST (GOT) 31 U/L (15-37); BLOOD UREA NITROGEN 17 MG/DL (7-18); CALCIUM 9.5 MG/DL (8.5-10.1); CHLORIDE 101 MEQ/L (98-107); CREATININE 1.14 MG/DL (0.60-1.30); GLOMERULAR FILTRATION RATE 73 ML/MIN (>89); GLUCOSE,RANDOM 111 MG/DL (74-106); SODIUM (NA) 138 MEQ/L (136-145)
[2018-04-16 09:44] LABS: ALKALINE PHOSPHATASE 92 U/L (45-117); ALT (GPT) 55 U/L (12-78); TOTAL BILIRUBIN ADULT 0.4 MG/DL (0.2-1.0); TOTAL PROTEIN 7.5 GM/DL (6.4-8.2)
--- NOTE | 2018-04-16 11:53 | HHI.PYPN ---
Subjective Remarks Patient seen for follow, chart reviewed. Patient refused blood draw yesterday but did not comply with a lot of blood draw this morning, more visible on the unit that he has new roommates, has been quiet and minimal interaction with others. Patient was found sitting in day room noted B, cooperative. Patient continues with very concrete thought process, appearing internally preoccupied, reports sleeping well, no difficulty eating requested double portions of food and denying any perceptional services at this time. Patient states that he is feeling "good, like guided with double O". Patient states that he is attending groups on the unit. Patient states he agrees to start clozapine Review of Systems Except as stated in HPI: all other systems reviewed are Neg Mental Status Examination Appearance: Other (In [facility]) Consciousness: Alert Orientation: Person, Place, Date/Time Motor Activity: Normal gait Speech: Slow Language: Adequate Fund of Knowledge: Adequate Attention and Concentration: Easily Distracted Memory: Impaired (Suspect psychosis interferes) Mood: Other ("Fine") Affect: Flat Thought Process & Associations: Other ([place]) Thought Content: Hallucinations (Denies today although noted to be internally preoccupied), Thought blocking, Delusional Hallucination Type: Other (Internally stimulated) Delusion Type: Bizarre, Paranoid Suicidal Ideation: No (Unreliable to contract for safety) Suicidal Plan: No Suicidal Intention: No Homicidal Ideation: No Homicidal Plan: No Homicidal Intention: No Insight: Poor Judgment: Poor Results Labs Labs reviewed Test 04/16/18 08:40 04/16/18 08:46 White Blood Count 7.6 TH/MM3 Red Blood Count 4.99 MIL/MM3 Hemoglobin 16.7 GM/DL Hematocrit 48.2 % Mean Corpuscular Volume 96.5 FL Mean Corpuscular Hemoglobin 33.4 PG Mean Corpuscular Hemoglobin Concent 34.6 % Red Cell Distribution Width 13.9 % Platelet Count 349 TH/MM3 Mean Platelet Volume 7.5 FL Neutrophils (%) (Auto) 62.1 % Lymphocytes (%) (Auto) 25.0 % Monocytes (%) (Auto) 8.5 % Eosinophils (%) (Auto) 3.4 % Basophils (%) (Auto) 1.0 % Neutrophils # (Auto) 4.7 TH/MM3 Lymphocytes # (Auto) 1.9 TH/MM3 Monocytes # (Auto) 0.6 TH/MM3 Eosinophils # (Auto) 0.3 TH/MM3 Basophils # (Auto) 0.1 TH/MM3 CBC Comment DIFF FINAL Differential Comment Blood Urea Nitrogen 17 MG/DL Creatinine 1.14 MG/DL Random Glucose 111 MG/DL Total Protein 7.5 GM/DL Albumin 4.1 GM/DL Calcium Level 9.5 MG/DL Alkaline Phosphatase 92 U/L Aspartate Amino Transf (AST/SGOT) 31 U/L Alanine Aminotransferase (ALT/SGPT) 55 U/L Total Bilirubin 0.4 MG/DL Sodium Level 138 MEQ/L Potassium Level 4.7 MEQ/L Chloride Level 101 MEQ/L Carbon Dioxide Level 30.0 MEQ/L Anion Gap 7 MEQ/L Estimat Glomerular Filtration Rate 73 ML/MIN Vitals/IOs Vital Signs Date Time Temp Pulse Resp B/P (MAP) Pulse Ox O2 Delivery O2 Flow Rate FiO2 04/16/18 05:42 97.9 65 16 97/52 (67) 99 Assessment & Plan Problem List: (1) Schizophrenia ICD Codes: F20.9 - Schizophrenia, unspecified Status: Acute Assessment & Plan Patient this time continues to be internally preoccupied, very concrete thought process, continued with some some thought blocking but is more visible on the unit, attending groups, eating and drinking requesting double portions. We will request patient to have double portions for meals. Patient agreed to starting clozapine. Will begin clozapine 25 mg p.o. at bedtime with taper of increasing between 25-50 mg per day reach target dose of 300-450 mg. Plan to taper Haldol once clozapine which is within therapeutic range. Pending baseline cardiac echo, CBC found to be within normal limits. EKG also with no abnormal findings. Monitor for signs of EPS and orthostatic hypotension. continue monitor mood and behavior. Discharge planning in progress. Justification for Cont. Inpt. At risk of further decompensation a lower level of care. Discharge Planning State referral Problem Qualifiers (1) Schizophrenia: Qualified Codes: F20.0 - Paranoid schizophrenia Magdiel Zepeda MD Apr 16, 2018 11:53
[2018-04-16 18:12] VITALS: BP 123/59; PULSE 77; RESP 17; TEMP 97.8; O2SAT 99
[2018-04-16] MEDS: cloZAPine 25 MG TAB PO SCH (20:46)
[2018-04-16] MEDS: REMOVE OLD NICODERM (NICOTINE) PATCH T-DERMAL SCH (20:47)
[2018-04-17 06:10] VITALS: BP 98/73; PULSE 107; RESP 17; TEMP 97.1; O2SAT 97
[2018-04-17] MEDS: clonazePAM 0.5 MG TAB PO SCH ×2 (09:14→21:07)
[2018-04-17] MEDS: HALOPERIDOL LACTATE ORAL CONC 10 MG/5 ML CUP PO SCH ×2 (09:14→21:06)
[2018-04-17] MEDS: NICOTINE 21 MG/24 HR PATCH T-DERMAL SCH (09:14)
--- NOTE | 2018-04-17 13:53 | HHI.PYPN ---
Subjective Remarks Pt seen and discussed with staff. Chart reviewed. He is seclusive to room with poor engagement. Bizarre and disorganized behaviors noted on unit by staff and RN. He is compliant with medications and denies side effects. Mental Status Examination Appearance: Other (In [facility]) Consciousness: Alert Orientation: Person, Place, Date/Time Motor Activity: Normal gait Speech: Slow Language: Adequate Fund of Knowledge: Adequate Attention and Concentration: Easily Distracted Memory: Impaired (Suspect psychosis interferes) Mood: Other ("Fine") Affect: Flat Thought Process & Associations: Other ([place]) Thought Content: Hallucinations (Denies today although noted to be internally preoccupied), Thought blocking, Delusional Hallucination Type: Other (Internally stimulated) Delusion Type: Bizarre, Paranoid Suicidal Ideation: No (Unreliable to contract for safety) Suicidal Plan: No Suicidal Intention: No Homicidal Ideation: No Homicidal Plan: No Homicidal Intention: No Insight: Poor Judgment: Poor Results Vitals/IOs Vital Signs Date Time Temp Pulse Resp B/P (MAP) Pulse Ox O2 Delivery O2 Flow Rate FiO2 04/17/18 06:10 97.1 107 17 98/73 (81) 97 Assessment & Plan Problem List: (1) Schizophrenia ICD Codes: F20.9 - Schizophrenia, unspecified Status: Acute Assessment & Plan Continue current tx plan. Estimated LOS: days Justification for Cont. Inpt. impairments in reality testing. Problem Qualifiers (1) Schizophrenia: Qualified Codes: F20.0 - Paranoid schizophrenia Rosa Isela Smith MD Apr 17, 2018 13:53
[2018-04-17] MEDS: REMOVE OLD NICODERM (NICOTINE) PATCH T-DERMAL SCH (21:00)
[2018-04-17] MEDS: cloZAPine 25 MG TAB PO SCH (21:07)
[2018-04-18 06:41] VITALS: BP 108/53; PULSE 75; RESP 18; TEMP 97.5; O2SAT 96
[2018-04-18] MEDS: clonazePAM 0.5 MG TAB PO SCH ×2 (08:42→20:45)
[2018-04-18] MEDS: HALOPERIDOL LACTATE ORAL CONC 10 MG/5 ML CUP PO SCH ×2 (08:44→20:45)
[2018-04-18] MEDS: NICOTINE 21 MG/24 HR PATCH T-DERMAL SCH (08:44)
--- NOTE | 2018-04-18 14:50 | HHI.PYPN ---
Subjective Remarks Pt seen and discussed with staff. Chart reviewed. Pt was transferred to 2600 unit today. He required coaxing to take medications last night but was compliant. He remains isolative to self and at times engages in bizarre behaviors. No aggression or agitation Mental Status Examination Appearance: Other (In hospital [facility]) Consciousness: Alert Orientation: Person, Place, Date/Time Motor Activity: Normal gait Speech: Slow Language: Adequate Fund of Knowledge: Adequate Attention and Concentration: Easily Distracted Memory: Impaired (Suspect psychosis interferes) Mood: Other ("Fine") Affect: Flat Thought Process & Associations: Other ([place]) Thought Content: Hallucinations (Denies today although noted to be internally preoccupied), Thought blocking, Delusional Hallucination Type: Other (Internally stimulated) Delusion Type: Bizarre, Paranoid Suicidal Ideation: No (Unreliable to contract for safety) Suicidal Plan: No Suicidal Intention: No Homicidal Ideation: No Homicidal Plan: No Homicidal Intention: No Insight: Poor Judgment: Poor Results Vitals/IOs Vital Signs Date Time Temp Pulse Resp B/P (MAP) Pulse Ox O2 Delivery O2 Flow Rate FiO2 04/18/18 06:41 97.5 75 18 108/53 (71) 96 Assessment & Plan Problem List: (1) Schizophrenia ICD Codes: F20.9 - Schizophrenia, unspecified Status: Acute Assessment & Plan Continue current tx plan. Estimated LOS: days Justification for Cont. Inpt. risk of decompensation Problem Qualifiers (1) Schizophrenia: Qualified Codes: F20.0 - Paranoid schizophrenia Rosa Isela Smith MD Apr 18, 2018 14:50
[2018-04-18 19:14] VITALS: BP 124/75; PULSE 98; RESP 18; TEMP 96.1; O2SAT 96
[2018-04-18] MEDS: cloZAPine 25 MG TAB PO SCH (20:45)
[2018-04-18] MEDS: REMOVE OLD NICODERM (NICOTINE) PATCH T-DERMAL SCH (20:45)
[2018-04-19 06:11] VITALS: BP 123/67; PULSE 84; RESP 16; TEMP 97.9; O2SAT 97
[2018-04-19] MEDS: NICOTINE 21 MG/24 HR PATCH T-DERMAL SCH (08:59)
[2018-04-19] MEDS: clonazePAM 0.5 MG TAB PO SCH ×2 (09:00→20:58)
[2018-04-19] MEDS: HALOPERIDOL LACTATE ORAL CONC 10 MG/5 ML CUP PO SCH ×2 (09:00→20:58)
--- NOTE | 2018-04-19 11:23 | PD.TTN ---
Patient Problems 1. Discharge planning 2. Medication compliance 3. Knowledge deficit 4. Lack of coping skills Progress Toward Goals Provider Present: Dr. Julia Zepeda Provider Input: Will initiate state referral today, titrating meds State referral order submitted 04/19/18 Patient medication continues to be titrated. Continue with treatment Nurse(s) Input: Pt is not improving, continues to present as withdrawn and psychotic 04/19/18 Patient's nurse reports patient is medication compliant, sexually preoccupied, denies suicidal and homicidal ideation. Psychiatric Counselors Present: [facility], Jarod Bajwa Jr., [facility] Psych Therapist Input: Pt actively psychotic needs further stabilzation. State packet is in process of being completed. Jarod left a voicemail for POA, GIULIANO has the remaining information needed to complete the state referral packet. 04/19/18 [facility]. Patient is medication compliant, denies suicidal and homicidal ideation. Patient is medication compliant Group Spec/RT/OT/BENOIT Present: Aiyana Victoria, OC, Dillon Reyes, BENOIT Group Spec/RT/OT/BENOIT Input: Attends some groups 04/19/18 Patient will attend some groups Occupational Therapist Input: Limited group activity Rosy Ortiz [facility] Apr 19, 2018 11:23
--- NOTE | 2018-04-19 17:19 | HHI.PYPN ---
Subjective Remarks Patient seen for follow-up, chart reviewed. Discussion nursing staff reported the patient shaved off his eyebrows, continue to have some bizarre interactions with staff at times, isolative. Patient was found lying hospital bed refusing to remove covers over his head stating that he had been feeling "good" states that today he was reading the Bible when asked whether he is pentecostal person stated that he did not want to discuss that he thought it was a personal matter. He also mentions eating and drinking well with adequate bowel movement and requesting double portions at his meals. When asked about why he had shaved his eyebrows he states "I have better eyesight without my eyebrows". He states he is attending groups and having spoken to his power of deputy prosecuting attorney but did not elaborate. Review of Systems Except as stated in HPI: all other systems reviewed are Neg Mental Status Examination Appearance: Other (In [facility]) Consciousness: Alert Orientation: Person, Place, Date/Time Motor Activity: Normal gait Speech: Slow Language: Adequate Fund of Knowledge: Adequate Attention and Concentration: Easily Distracted Memory: Impaired (Suspect psychosis interferes) Mood: Other ("Fine") Affect: Flat Thought Process & Associations: Other ([place]) Thought Content: Bizarre thinking, Thought blocking (Lessening), Delusional Hallucination Type: Other (Internally stimulated) Delusion Type: Bizarre, Paranoid Suicidal Ideation: No (Unreliable to contract for safety) Suicidal Plan: No Suicidal Intention: No Homicidal Ideation: No Homicidal Plan: No Homicidal Intention: No Insight: Poor Judgment: Poor Results Vitals/IOs Vital Signs Date Time Temp Pulse Resp B/P (MAP) Pulse Ox O2 Delivery O2 Flow Rate FiO2 04/19/18 06:11 97.9 84 16 123/67 (75) 97 Assessment & Plan Problem List: (1) Schizophrenia ICD Codes: F20.9 - Schizophrenia, unspecified Status: Acute Assessment & Plan Patient continues to have bizarre behavior, continues to be very guarded when asked personal questions, continues with very concrete responses. We will continue to titrate clozapine, continue monitor mood and behavior. Continue to encourage patient to be less isolative. Discharge planning in progress. Justification for Cont. Inpt. At risk of further decompensation a lower level of care. Discharge Planning To be determined. Problem Qualifiers (1) Schizophrenia: Qualified Codes: F20.0 - Paranoid schizophrenia Magdiel Zepeda MD Apr 19, 2018 17:19
[2018-04-19 18:03] VITALS: BP 122/68; PULSE 82; RESP 16; TEMP 98; O2SAT 97
[2018-04-19] MEDS: REMOVE OLD NICODERM (NICOTINE) PATCH T-DERMAL SCH (20:58)
[2018-04-19] MEDS: cloZAPine 25 MG TAB PO SCH (20:58)
[2018-04-20] MEDS: NICOTINE 21 MG/24 HR PATCH T-DERMAL SCH (08:32)
[2018-04-20] MEDS: HALOPERIDOL LACTATE ORAL CONC 10 MG/5 ML CUP PO SCH ×2 (08:34→21:29)
[2018-04-20] MEDS: clonazePAM 0.5 MG TAB PO SCH ×2 (08:34→21:29)
--- NOTE | 2018-04-20 16:12 | HHI.PYPN ---
Subjective Remarks Patient seen for follow, chart reviewed. Discussion nursing staff reported the patien noted be somewhat irritable at night as he has checked on every 15 minutes, compliant with medications and attending groups. Patient was found lying hospital bed with covers over his head refusing to remove them for interview. Patient states that he is sleeping well, denies any adverse drug reaction for treatment, states that he is now noticing having a decrease craving for tobacco feels that he is doing better. Patient stated his mood has been good, denying perceptual disturbances, denies any SI or HI. Patient states that he sometimes halves conversations with himself and that nursing staff may report seeing him talking to himself but denies having any perceptional services only that he is speaking out loud with his thoughts. Review of Systems Except as stated in HPI: all other systems reviewed are Neg Mental Status Examination Appearance: Other (In [facility]) Consciousness: Alert Orientation: Person, Place, Date/Time Motor Activity: Normal gait Speech: Slow Language: Adequate Fund of Knowledge: Adequate Attention and Concentration: Easily Distracted Memory: Impaired (Suspect psychosis interferes) Mood: Other ("Great") Affect: Other (Refused to remove covers over his head during interview) Thought Process & Associations: Other ([place]) Thought Content: Bizarre thinking, Thought blocking (Lessening), Delusional Hallucination Type: Other (Internally stimulated) Delusion Type: Bizarre, Paranoid Suicidal Ideation: No (Unreliable to contract for safety) Suicidal Plan: No Suicidal Intention: No Homicidal Ideation: No Homicidal Plan: No Homicidal Intention: No Insight: Poor Judgment: Poor Results Vitals/IOs Vital Signs Date Time Temp Pulse Resp B/P (MAP) Pulse Ox O2 Delivery O2 Flow Rate FiO2 04/19/18 18:03 98.0 82 16 122/68 (86) 97 Assessment & Plan Problem List: (1) Schizophrenia ICD Codes: F20.9 - Schizophrenia, unspecified Status: Acute Assessment & Plan Patient this time noted to have more reactive responses during interview, noted be more engaging interview but continues to have bizarre behavior. We will continue titration of clozapine and have weekly CBCs for monitoring. Patient had echocardiogram done today will follow up with results. We will continue to monitor mood and behavior. Discharge planning in progress. Justification for Cont. Inpt. At risk for further decompensation if at lower level of care Discharge Planning To be determined. Problem Qualifiers (1) Schizophrenia: Qualified Codes: F20.0 - Paranoid schizophrenia Magdiel Zepeda MD Apr 20, 2018 16:12
--- NOTE | 2018-04-20 16:58 | ECHRPT ---
Indication: WILL START CLOZAPINE CONCLUSIONS Normal left ventricular size. Wall thickness is normal. The left ventricular systolic function is hyperdynamic with an estimated ejection fraction in the ra nge of 65- 70%. BP: 97 / 52 HR: 65 Rhythm: Sinus MEASUREMENTS (Male / Female) Normal Values Technical Quality:Fair 2D ECHO LV Diastolic Diameter PLAX 4.5 cm 4.2 - 5.9 / 3.9 - 5.3 cm LV Systolic Diameter PLAX 3.0 cm IVS Diastolic Thickness 0.8 cm 0.6 - 1.0 / 0.6 - 0.9 cm LVPW Diastolic Thickness 0.8 cm 0.6 - 1.0 / 0.6 - 0.9 cm LV Relative Wall Thickness 0.4 RV Internal Dim ED PLAX 2.2 cm LVOT Diameter 2.0 cm Aortic Root Diameter 3.0 cm LA Systolic Diameter LX 2.6 cm 3.0 - 4.0 / 2.7 - 3.8 cm M-MODE AV Cusp Separation MM 1.9 cm DOPPLER AV Peak Velocity 104.1 cm/s AV Peak Gradient 4.3 mmHg AV Mean Gradient 2.5 mmHg AV Velocity Time Integral 16.0 cm Mitral E Point Velocity 79.7 cm/s Mitral A Point Velocity 62.2 cm/s Mitral E to A Ratio 1.3 LV E' Septal Velocity 12.9 cm/s Mitral E to LV E' Septal Ratio 6.2 TR Peak Velocity 193.0 cm/s TR Peak Gradient 14.9 mmHg Right Atrial Pressure 10.0 mmHg Pulmonary Artery Systolic Pressu 24.9 mmHg Right Ventricular Systolic Press 24.9 mmHg PV Peak Velocity 48.9 cm/s PV Peak Gradient 1.0 mmHg FINDINGS LEFT VENTRICLE Normal left ventricular size. Wall thickness is normal. The left ventricular systolic function is hyperdynamic with an estimated ejection fraction in the ra nge of 65- 70%. RIGHT VENTRICLE Normal right ventricular size and systolic function. LEFT ATRIUM The left atrial size is normal. RIGHT ATRIUM The right atrial size is normal. ATRIAL SEPTUM No atrial level shunt is demonstrated by color flow Doppler interrogation. AORTA The aortic root and proximal ascending aorta are not well visualized. MITRAL VALVE Structurally normal mitral valve. No mitral valve stenosis or regurgitation. AORTIC VALVE The aortic valve is not well visualized. No aortic valve stenosis or regurgitation. TRICUSPID VALVE Structurally normal tricuspid valve. No tricuspid valve stenosis or regurgitation. PULMONARY VALVE The pulmonary valve is not well visualized. VESSELS The inferior vena cava is normal in size. PERICARDIUM No pericardial effusion. Erich Thompson MD, FACC (Electronically Signed) Final Date:20 April 2018 16:57
[2018-04-20] MEDS: REMOVE OLD NICODERM (NICOTINE) PATCH T-DERMAL SCH (21:00)
[2018-04-20] MEDS: cloZAPine 100 MG TAB PO SCH (21:29)
[2018-04-21 06:14] VITALS: BP 136/74; PULSE 72; RESP 18; TEMP 97.4; O2SAT 100
[2018-04-21] MEDS: HALOPERIDOL LACTATE ORAL CONC 10 MG/5 ML CUP PO SCH ×2 (08:30→20:35)
[2018-04-21] MEDS: NICOTINE 21 MG/24 HR PATCH T-DERMAL SCH (08:30)
[2018-04-21] MEDS: clonazePAM 0.5 MG TAB PO SCH ×2 (08:30→20:36)
[2018-04-21 17:55] VITALS: BP 121/81; PULSE 107; RESP 18; TEMP 99.4; O2SAT 99
--- NOTE | 2018-04-21 20:19 | HHI.PYPN ---
Subjective Remarks Reviewed electronic medical record, test results, and discussed case with staff. Patient's echo results show that he has a 65-70% ejection fraction and large muscle appears to be within normal limits. Staff reports that he seems to be "doing better but still is internally stimulated" he has been compliant with his medications. Follow-up was conducted in his room. Patient was found sleeping in the bed. He woke to verbal stimulation reported that he has been sleeping well his appetite is been good. He denies having auditory or visual hallucinations to this provider. He refused to open his eyes or interacts further, stating that he wanted to sleep. Mental Status Examination Appearance: Other (In [facility]) Consciousness: Alert Orientation: Person, Place, Date/Time Motor Activity: Normal gait Speech: Slow Language: Adequate Fund of Knowledge: Adequate Attention and Concentration: Easily Distracted Memory: Impaired (Suspect psychosis interferes) Mood: Other ("Great") Affect: Other (Refused to remove covers over his head during interview) Thought Process & Associations: Other ([place]) Thought Content: Bizarre thinking, Thought blocking (Lessening), Delusional Hallucination Type: Other (Internally stimulated) Delusion Type: Bizarre, Paranoid Suicidal Ideation: No (Unreliable to contract for safety) Suicidal Plan: No Suicidal Intention: No Homicidal Ideation: No Homicidal Plan: No Homicidal Intention: No Insight: Poor Judgment: Poor Results Vitals/IOs Vital Signs Date Time Temp Pulse Resp B/P (MAP) Pulse Ox O2 Delivery O2 Flow Rate FiO2 04/21/18 17:55 99.4 107 18 121/81 (94) 99 Assessment & Plan Problem List: (1) Schizophrenia ICD Codes: F20.9 - Schizophrenia, unspecified Status: Acute Assessment & Plan Estimated LOS: Continue with current treatment plan. Days Justification for Cont. Inpt. Review this patient to a lower level of care would likely result in decompensation. Problem Qualifiers (1) Schizophrenia: Qualified Codes: F20.0 - Paranoid schizophrenia Flor Smith Apr 21, 2018 20:19
[2018-04-21] MEDS: REMOVE OLD NICODERM (NICOTINE) PATCH T-DERMAL SCH (20:36)
[2018-04-21] MEDS: cloZAPine 100 MG TAB PO SCH (20:40)
[2018-04-22 06:22] VITALS: PULSE 95; RESP 14; TEMP 98.2; O2SAT 99
[2018-04-22] MEDS: NICOTINE 21 MG/24 HR PATCH T-DERMAL SCH (10:20)
[2018-04-22] MEDS: clonazePAM 0.5 MG TAB PO SCH ×2 (10:22→20:08)
[2018-04-22] MEDS: HALOPERIDOL LACTATE ORAL CONC 10 MG/5 ML CUP PO SCH ×2 (10:24→20:08)
--- NOTE | 2018-04-22 12:12 | HHI.PYPN ---
Subjective Remarks Patient seen and examined with nurse in coverage for Dr. Zepeda. Chart reviewed. Case discussed with nursing staff who reports patient does not engage in any socialization and continues to mumble to himself. He was noted to have slept well overnight. On my examination today, the patient denies any auditory hallucinations, which he calls "ear hallucinations," denies any visual hallucinations. He can be seen however visibly responding to internal stimuli. No SI or HI. No mood symptoms. No side effects from medications. No physical complaints. Review of Systems ROS Limitations: Psychotic, Poor Historian Except as stated in HPI: all other systems reviewed are Neg Mental Status Examination Appearance: Appropriate Consciousness: Alert Orientation: Person, Place (At least) Motor Activity: Normal gait, Other (No motor abnormalities noted) Speech: Unremarkable Language: Adequate Fund of Knowledge: Adequate Attention and Concentration: Easily Distracted Memory: Impaired (Suspect psychosis interferes) Mood: Good Affect: Blunt Thought Process & Associations: Other (Remains a little concrete) Thought Content: Bizarre thinking, Hallucinations Hallucination Type: Other (Visibly responding to internal stimuli) Delusion Type: None Suicidal Ideation: No Homicidal Ideation: No Insight: Poor Judgment: Poor Results Labs Labs reviewed. Most recent ANC from 04/16 was adequate for clozapine therapy. Vitals/IOs Vital Signs Date Time Temp Pulse Resp B/P (MAP) Pulse Ox O2 Delivery O2 Flow Rate FiO2 04/22/18 06:22 98.2 95 14 99 04/21/18 17:55 121/81 (94) Assessment & Plan Problem List: (1) Schizophrenia ICD Codes: F20.9 - Schizophrenia, unspecified Status: Acute Assessment & Plan Continue clozapine titration ordered by Dr. Zepeda. Follow-up CBC ordered for tomorrow morning. Continue other psychotropics as ordered. Continue other medications and care as ordered. Justification for Cont. Inpt. Impairment in reality construction. Medication changes. Risk for decompensation in less restrictive environment. Discharge Planning Nurse informs me the plan is for [facility] hospital referral for this patient. Problem Qualifiers (1) Schizophrenia: Qualified Codes: F20.0 - Paranoid schizophrenia Sincere Sheikh MD Apr 22, 2018 12:12
[2018-04-22 17:36] VITALS: BP 117/86; PULSE 102; RESP 16; TEMP 98.1; O2SAT 99
[2018-04-22] MEDS: REMOVE OLD NICODERM (NICOTINE) PATCH T-DERMAL SCH (20:08)
[2018-04-22] MEDS: cloZAPine 100 MG TAB PO SCH (20:08)
[2018-04-23] MEDS: HALOPERIDOL LACTATE ORAL CONC 10 MG/5 ML CUP PO SCH ×2 (09:49→20:35)
[2018-04-23] MEDS: NICOTINE 21 MG/24 HR PATCH T-DERMAL SCH (09:49)
[2018-04-23] MEDS: clonazePAM 0.5 MG TAB PO SCH ×2 (09:49→20:35)
--- NOTE | 2018-04-23 16:34 | HHI.PYPN ---
Subjective Remarks Reviewed electronic medical record and discussed case with staff. Follow-up was conducted in patient's room with him sitting in a chair. He denies having any thoughts of self-harm, auditory or visual hallucinations. Reports that he has been sleeping well and his appetite has been "okay". He states that he is tolerating the medications well. He did have an episode of vomiting while out for fresh air. Mental Status Examination Appearance: Appropriate Consciousness: Alert Orientation: Person, Place (At least) Motor Activity: Normal gait, Other (No motor abnormalities noted) Speech: Unremarkable Language: Adequate Fund of Knowledge: Adequate Attention and Concentration: Easily Distracted Memory: Impaired (Suspect psychosis interferes) Mood: Good Affect: Blunt Thought Process & Associations: Other (Remains a little concrete) Thought Content: Bizarre thinking, Hallucinations Hallucination Type: Other (Visibly responding to internal stimuli) Delusion Type: None Suicidal Ideation: No Homicidal Ideation: No Insight: Poor Judgment: Poor Results Vitals/IOs Vital Signs Date Time Temp Pulse Resp B/P (MAP) Pulse Ox O2 Delivery O2 Flow Rate FiO2 04/22/18 17:36 98.1 102 16 117/86 (96) 99 Assessment & Plan Problem List: (1) Schizophrenia ICD Codes: F20.9 - Schizophrenia, unspecified Status: Acute Assessment & Plan Estimated LOS: Patient continues to exhibit some internal stimulation. Continue with current treatment plan. Days Justification for Cont. Inpt. Moving this patient to a lower level care would likely result in a decompensation. Problem Qualifiers (1) Schizophrenia: Qualified Codes: F20.0 - Paranoid schizophrenia Flor Smith Apr 23, 2018 16:34
[2018-04-23 17:14] VITALS: BP 145/71; PULSE 103; RESP 18; TEMP 98.3; O2SAT 100
[2018-04-23] MEDS: cloZAPine 100 MG TAB PO SCH (20:36)
[2018-04-23] MEDS: REMOVE OLD NICODERM (NICOTINE) PATCH T-DERMAL SCH (20:38)
[2018-04-24 05:37] VITALS: BP 119/59; PULSE 94; RESP 18; TEMP 97.4; O2SAT 98
[2018-04-24] MEDS: clonazePAM 0.5 MG TAB PO SCH ×2 (08:56→20:41)
[2018-04-24] MEDS: HALOPERIDOL LACTATE ORAL CONC 10 MG/5 ML CUP PO SCH ×2 (08:56→20:41)
[2018-04-24] MEDS: NICOTINE 21 MG/24 HR PATCH T-DERMAL SCH (09:00)
[2018-04-24 09:16] LABS: AUTOMATED NEUTROPHIL # 8.7 TH/MM3 (1.8-7.7); BASOPHIL # 0.1 TH/MM3 (0-0.2); BASOPHIL % 0.5 % (0.0-2.0); EOSINOPHIL # 0.5 TH/MM3 (0-0.4); HEMATOCRIT 48.8 % (39.0-51.0); HEMOGLOBIN 16.8 GM/DL (13.0-17.0); LYMPH % 19.4 % (9.0-44.0); LYMPHOCYTE # 2.5 TH/MM3 (1.0-4.8); MEAN CELL VOLUME 95.5 FL (80.0-100.0); MEAN CORPUSCULAR HEMOGLOBIN 32.8 PG (27.0-34.0); MEAN CORPUSCULAR HGB CONC 34.4 % (32.0-36.0); MEAN PLATELET VOLUME 7.8 FL (7.0-11.0); MONO % 7.9 % (0.0-8.0); NEUT % 68.2 % (16.0-70.0); PLATELET COUNT 326 TH/MM3 (150-450); RED CELL DISTRIBUTION WIDTH 13.2 % (11.6-17.2); WHITE BLOOD COUNT 12.8 TH/MM3 (4.0-11.0)
--- NOTE | 2018-04-24 10:52 | HHI.PYPN ---
Subjective Remarks Patient was seen and case discussed with nursing. Patient describes his mood today is "good." He has bizarre behavior today where he is sprinkling salt pullover shirt and he says he needs the taste of salt after a workout. He was asked to drink more water with salt. Likely responding to internal stimuli. Compliant with medications and behaving well on the unit Mental Status Examination Appearance: Appropriate Consciousness: Alert Orientation: Person, Place (At least) Motor Activity: Normal gait, Other (No motor abnormalities noted) Speech: Unremarkable Language: Adequate Fund of Knowledge: Adequate Attention and Concentration: Easily Distracted Memory: Impaired (Suspect psychosis interferes) Mood: Good Affect: Blunt Thought Process & Associations: Other (Remains a little concrete) Thought Content: Bizarre thinking, Hallucinations Hallucination Type: Other (Visibly responding to internal stimuli) Delusion Type: Bizarre Suicidal Ideation: No Homicidal Ideation: No Insight: Poor Judgment: Poor Results Labs Test 04/24/18 08:28 White Blood Count 12.8 TH/MM3 Red Blood Count 5.10 MIL/MM3 Hemoglobin 16.8 GM/DL Hematocrit 48.8 % Mean Corpuscular Volume 95.5 FL Mean Corpuscular Hemoglobin 32.8 PG Mean Corpuscular Hemoglobin Concent 34.4 % Red Cell Distribution Width 13.2 % Platelet Count 326 TH/MM3 Mean Platelet Volume 7.8 FL Neutrophils (%) (Auto) 68.2 % Lymphocytes (%) (Auto) 19.4 % Monocytes (%) (Auto) 7.9 % Eosinophils (%) (Auto) 4.0 % Basophils (%) (Auto) 0.5 % Neutrophils # (Auto) 8.7 TH/MM3 Lymphocytes # (Auto) 2.5 TH/MM3 Monocytes # (Auto) 1.0 TH/MM3 Eosinophils # (Auto) 0.5 TH/MM3 Basophils # (Auto) 0.1 TH/MM3 CBC Comment DIFF FINAL Differential Comment Vitals/IOs Vital Signs Date Time Temp Pulse Resp B/P (MAP) Pulse Ox O2 Delivery O2 Flow Rate FiO2 04/24/18 05:37 97.4 94 18 119/59 (79) 98 Assessment & Plan Problem List: (1) Schizophrenia ICD Codes: F20.9 - Schizophrenia, unspecified Status: Acute Assessment & Plan Continue current treatment plan Justification for Cont. Inpt. Patient would decompensate in a less restrictive setting Problem Qualifiers (1) Schizophrenia: Qualified Codes: F20.0 - Paranoid schizophrenia Kody Calvert DO Apr 24, 2018 10:52
[2018-04-24 17:07] VITALS: BP 153/98; PULSE 103; RESP 20; TEMP 97.9; O2SAT 98
[2018-04-24] MEDS: cloZAPine 100 MG TAB PO SCH (20:41)
[2018-04-24] MEDS: REMOVE OLD NICODERM (NICOTINE) PATCH T-DERMAL SCH (20:41)
[2018-04-25 05:25] VITALS: BP 121/60; PULSE 100; RESP 18; TEMP 97.3; O2SAT 97
[2018-04-25] MEDS: clonazePAM 0.5 MG TAB PO SCH ×2 (08:37→20:36)
[2018-04-25] MEDS: HALOPERIDOL LACTATE ORAL CONC 10 MG/5 ML CUP PO SCH ×2 (08:37→20:36)
[2018-04-25] MEDS: NICOTINE 21 MG/24 HR PATCH T-DERMAL SCH (08:37)
--- NOTE | 2018-04-25 09:29 | HHI.PYPN ---
Subjective Remarks Patient was seen and case discussed with nursing. Patient continues with excessive salt consumption. Per nursing he may also be snorting it. Patient says he needs assault after a workout. He is agreeable to a CMP to check his electrolyte levels. Continues to be in good behavior. Denies auditory or visual hallucinations. Likely responding to internal stimuli. Future goals include a cigarette Mental Status Examination Appearance: Appropriate Consciousness: Alert Orientation: Person, Place (At least) Motor Activity: Normal gait, Other (No motor abnormalities noted) Speech: Unremarkable Language: Adequate Fund of Knowledge: Adequate Attention and Concentration: Easily Distracted Memory: Impaired (Suspect psychosis interferes) Mood: Good Affect: Blunt Thought Process & Associations: Other (Remains a little concrete) Thought Content: Bizarre thinking, Hallucinations Hallucination Type: Other (Visibly responding to internal stimuli) Delusion Type: Bizarre Suicidal Ideation: No Homicidal Ideation: No Insight: Poor Judgment: Poor Results Vitals/IOs Vital Signs Date Time Temp Pulse Resp B/P (MAP) Pulse Ox O2 Delivery O2 Flow Rate FiO2 04/25/18 05:25 97.3 100 18 121/60 (80) 97 Assessment & Plan Problem List: (1) Schizophrenia ICD Codes: F20.9 - Schizophrenia, unspecified Status: Acute Assessment & Plan Continue current treatment plan Justification for Cont. Inpt. Patient would decompensate in a less restrictive setting Problem Qualifiers (1) Schizophrenia: Qualified Codes: F20.0 - Paranoid schizophrenia Kody Calvert DO Apr 25, 2018 09:29
[2018-04-25 13:39] LABS: ALBUMIN 3.6 GM/DL (3.4-5.0); AST (GOT) 22 U/L (15-37); BICARBONATE 26.9 MEQ/L (21.0-32.0); BLOOD UREA NITROGEN 22 MG/DL (7-18); CALCIUM 8.6 MG/DL (8.5-10.1); CHLORIDE 105 MEQ/L (98-107); CREATININE 0.93 MG/DL (0.60-1.30); GLOMERULAR FILTRATION RATE 92 ML/MIN (>89); GLUCOSE,RANDOM 117 MG/DL (74-106); SODIUM (NA) 142 MEQ/L (136-145)
[2018-04-25 13:43] LABS: ALKALINE PHOSPHATASE 88 U/L (45-117); ALT (GPT) 32 U/L (12-78); TOTAL BILIRUBIN ADULT 0.8 MG/DL (0.2-1.0); TOTAL PROTEIN 6.6 GM/DL (6.4-8.2)
[2018-04-25 16:43] VITALS: BP 144/80; PULSE 104; RESP 18; TEMP 98.3; O2SAT 98
[2018-04-25] MEDS: REMOVE OLD NICODERM (NICOTINE) PATCH T-DERMAL SCH (20:37)
[2018-04-25] MEDS: cloZAPine 100 MG TAB PO SCH (20:37)
[2018-04-26] MEDS: HALOPERIDOL LACTATE ORAL CONC 10 MG/5 ML CUP PO SCH ×2 (08:35→21:06)
[2018-04-26] MEDS: clonazePAM 0.5 MG TAB PO SCH ×2 (08:38→21:06)
[2018-04-26] MEDS: NICOTINE 21 MG/24 HR PATCH T-DERMAL SCH (09:00)
--- NOTE | 2018-04-26 18:56 | HHI.PYPN ---
Subjective Remarks Reviewed electronic medical record, labs, and discussed case with staff. Patient's sodium level 142. Follow-up was conducted in patient's room. Patient found lying in his bed with a blanket over his head. Seems much better today. He states that he feels good and that he attended fresh air today. He also reports going out for breakfast lunch and dinner. He is discharged focused inquiring about the plan. Mental Status Examination Appearance: Appropriate Consciousness: Alert Orientation: Person, Place (At least) Motor Activity: Normal gait, Other (No motor abnormalities noted) Speech: Unremarkable Language: Adequate Fund of Knowledge: Adequate Attention and Concentration: Easily Distracted Memory: Impaired (Suspect psychosis interferes) Mood: Good Affect: Blunt Thought Process & Associations: Other (Remains a little concrete) Thought Content: Bizarre thinking, Hallucinations Hallucination Type: Other (Visibly responding to internal stimuli) Delusion Type: Bizarre Suicidal Ideation: No Homicidal Ideation: No Insight: Poor Judgment: Poor Results Vitals/IOs Vital Signs Date Time Temp Pulse Resp B/P (MAP) Pulse Ox O2 Delivery O2 Flow Rate FiO2 04/25/18 16:43 98.3 104 18 144/80 (101) 98 Assessment & Plan Problem List: (1) Schizophrenia ICD Codes: F20.9 - Schizophrenia, unspecified Status: Acute Assessment & Plan Estimated LOS: Patient seems to be showing some improvement today. We will continue with current treatment plan. Tomorrow will speak with case management assistant to see how discharge planning is progressing. Days Justification for Cont. Inpt. Moving this patient to a lower level of care would likely result in decompensation. Problem Qualifiers (1) Schizophrenia: Qualified Codes: F20.0 - Paranoid schizophrenia Flor Smith Apr 26, 2018 18:56
[2018-04-26] MEDS: REMOVE OLD NICODERM (NICOTINE) PATCH T-DERMAL SCH (21:00)
[2018-04-26] MEDS: cloZAPine 100 MG TAB PO SCH (21:07)
[2018-04-27 05:48] VITALS: BP 108/59; PULSE 102; RESP 16; TEMP 97.3; O2SAT 97
[2018-04-27 05:51] VITALS: BP 108/59; PULSE 102; RESP 16; TEMP 97.3; O2SAT 97
[2018-04-27] MEDS: NICOTINE 21 MG/24 HR PATCH T-DERMAL SCH (08:21)
[2018-04-27] MEDS: clonazePAM 0.5 MG TAB PO SCH (08:21)
[2018-04-27] MEDS: HALOPERIDOL LACTATE ORAL CONC 10 MG/5 ML CUP PO SCH (08:22)
[2018-04-27] MEDS ORDERED: CLOZ100T PO (11:25)
[2018-04-27] MEDS ORDERED: CLON.5 PO (11:25)
[2018-04-27] MEDS ORDERED: HALO2S PO (11:25)
--- NOTE | 2018-04-27 11:37 | HHI.DS ---
Psychiatry Discharge Summary Inpatient Psychiatric care?: Yes Advance Directive: No Reason Not Provided: does not have any Mental Health AdvanceDirective: No Health Care Proxy: No Admission Admission Date April 02, 2018 at 07:44 Admission Diagnosis: (1) Schizophrenia ICD Code: F20.9 - Schizophrenia, unspecified Brief History From Dr. Villatoro's H&P: The patient is a 33-year-old man, domiciled in [facility] with a roommate , single, unemployed, he has psychiatric history of schizophrenia, alcohol and cocaine use disorder, multiple psychiatric hospitalizations, last hospitalization here in [place] in 2017, documentation was reviewed, history of aggressive behavior, noncompliance, no significant medical history, who presents emergency department under an EX PARTE initiated by his power of transactional attorney due to visual and auditory hallucinations, erratic behavior, not taking medications the patient here denies any suicidal or homicidal ideation. EMR was reviewed. The case was discussed with nurse in charge. Utgio Bustos, BAL 138. On psychiatric evaluation I find the patient that is secluded in his room. Initially very irritable, oppositional, then with redirection he is able to answer my questions, but he seems to be quite suspicious, internally preoccupied and paranoid. Patient is looking constantly to my pen and to my writing as a write. He seems to be quite unpredictable. He says that he is very upset and he does not want to be here. He reports that the police brought him here just to check his blood. "I do not need anything more than having my blood check and then you need to go, I do not need to see any psychiatrist". Patient has to be redirected multiple times in order to make him talk. He reports to be in a good mood, he denies depressive symptoms, he denies anxiety, he denies visual and auditory hallucinations, denies suicidal enemas ideation. The patient is oriented 3. He is very insightless regarding his psychiatric history, he says that he does not have psychiatric problems. He reports that he uses alcohol just sometimes. I confronted him regarding his U tox positive for cocaine, he became verbally hostile stating that he does not use cocaine. As per nurses, the patient has been acting erratically in the unit, laughing inappropriately, talking to himself, walking back and forth. On my examination today, 04/04: Patient seen and examined with nurse. Chart reviewed. Case discussed with nursing staff. On my examination today, the patient reports that he has a history of schizophrenia but is "healed now." Patient presents as quite disheveled and there is feces smeared on the bed and on the floor. He denies any suicidal or homicidal ideation but seems unreliable to contract for safety. He denies audiovisual hallucinations but appears internally stimulated. Paranoia is present. Mood is described as "okay." Remainder of the psychiatric ROS is negative. No acute physical complaints. Past psychiatric history: Patient reports a history of schizophrenia. He reports a history of previous psychiatric admissions, although he is somewhat evasive on the details. He denies any history of suicide attempts. Family history: Patient denies any family history of mental illness. Chemical dependency history: Patient reports that he smokes cigarettes and has the occasional beer. He provides no explanation for the cocaine found in his urine. Social history: The patient reports that he has 1/5 grade education. He collects an inheritance. He is single with one daughter. Tobacco Use In Past 30 Days: 5 or More Cigarettes/Day Alcohol Use: 4 or More Times Per Week Hospital Course This patient was admitted to a locked psychiatric unit. All safety precautions were maintained throughout his stay. 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 He was reestablished on his medication regimen. He showed progressive improvement throughout the stay. He tended to remain somewhat seclusive however, he reports that that is his nature. Staff reports no behaviors of late. Upon examination today patient is alert and oriented 4. His speech is clear, logical, and organized. His mood is good and his affect is euthymic. He denies suicidal or homicidal ideations. He denies auditory or visual hallucinations. There is no indication of internal stimulation nor thought blocking. I can elicit no delusional material. There is no indication of psychosis nor stanton at this time. There is no indication that he poses an eminent danger to himself or others. At this time I believe this patient has reached maximum benefit of admission. He will be discharged to his home with follow-up instructions. He is counseled to return to the nearest hospital should his condition worsen. Results Blood Pressure 108 / 59 Vital Signs Date Time Temp Pulse Resp B/P (MAP) Pulse Ox O2 Delivery O2 Flow Rate FiO2 6/19/18 05:51 97.3 102 16 108/59 (75) 97 Laboratory Tests Test 04/25/18 12:35 Blood Urea Nitrogen 22 MG/DL (7-18) Random Glucose 117 MG/DL (74-106) Laboratory Results Test 04/07/18 07:00 Cholesterol Level 161 MG/DL (120-200) HDL Cholesterol 71.9 MG/DL (40.0-60.0) Hemoglobin A1c 4.8 % (4.3-6.0) LDL Cholesterol 78 MG/DL (0-99) Triglycerides Level 56 MG/DL (42-150) Summary of Procedures n/a Imaging Last Impressions Head CT 04/07/18 0000 Signed Impressions: CONCLUSION: 1. Unremarkable CT scan of the brain. Pending results at discharge: No Medications # of Antipsychotic meds at D/C: 2 Appropriate >1 Antipsych meds?: 3 Approp Antipsych med options 1 - Minimum of three failed multiple trials of monotherapy. 2 - Documented plan to taper to monotherapy due to previous use of multiple meds OR cross-taper in progress at D/C. 3 - Documentation of augmentation of Clozapine. 4 - Justification other than those listed in allowable values 1-3, document here : Discharge Discharge Date: Apr 27, 2018 Discharge Diagnosis: (1) Schizophrenia ICD Code: F20.9 - Schizophrenia, unspecified Status: Acute Pt Condition on Discharge: Stable Discharge Disposition: Discharge Home Discharge Instructions Diet Instructions: As Tolerated, No Restrictions Activities you can perform: Regular-No Restrictions Discharge Time > 30 minutes Mental Status Examination Appearance: Appropriate Consciousness: Alert Orientation: Person, Place (At least) Motor Activity: Normal gait, Other (No motor abnormalities noted) Speech: Unremarkable Language: Adequate Fund of Knowledge: Adequate Attention and Concentration: Easily Distracted Memory: Impaired (Suspect psychosis interferes) Mood: Good Affect: Blunt Thought Process & Associations: Other (Remains a little concrete) Thought Content: Bizarre thinking, Hallucinations Hallucination Type: Other (Visibly responding to internal stimuli) Delusion Type: Bizarre Suicidal Ideation: No Homicidal Ideation: No Insight: Poor Judgment: Poor Discharge/Advance Care Plan Health Problems: (1) Schizophrenia Goals to promote your health * To prevent worsening of your condition and complications * To maintain your health at the optimal level Directions to meet your goals Take your medications as prescribed Follow your dietary instruction Follow activity as directed Keep your appointments as scheduled Take your immunizations and boosters as scheduled If your symptoms worsen call your PCP, if no PCP go to Urgent Care Center or Emergency Room For 01/06 questions related to your inpatient stay or results of tests pending at discharge, please contact Dr. Flor Smith at Smoking is Dangerous to Your Health. Avoid second hand smoking Problem Qualifiers (1) Schizophrenia: Qualified Codes: F20.0 - Paranoid schizophrenia Flor Smith Apr 27, 2018 11:37
== END 2018-04-27 13:35 | disposition home or self-care (01) | DRG 885 ==
LOC: NEPJ 23:02 → NEDA 04-02 07:44 → H270 04-02 10:20 → H260 04-18 14:45
PROVIDERS: ADMIT Student in an Organized Health Care Education/Training Program; ATTEND Student in an Organized Health Care Education/Training Program
DX: F20.0 Paranoid schizophrenia (principal); F14.10 Cocaine abuse, uncomplicated; F10.10 Alcohol abuse, uncomplicated; Y90.6 Blood alcohol level of 120-199 mg/100 ml; F17.210 Nicotine dependence, cigarettes, uncomplicated; Z53.20 Procedure and treatment not carried out because of patient's decision for unspecified reasons; Z91.14 Patient's other noncompliance with medication regimen; Z59.0 Homelessness
CPT/HCPCS: 70450; 80048; 80053; 80061; 80076; 80307; 83036; 84443; 85025; 93005; 93306; 99285

== ENCOUNTER 2018-04-30 09:12 | Emergency (ER) | payer BC ==
[~2018-04-30] VITALS: Ht 175.3 cm; Wt 65.0 kg
[~2018-04-30 09:12] MED LIST changes: -BENZ1TAB PO; +CLON.5 PO; +CLOZ100T PO; -HALO10TA PO; +HALO2S PO
[2018-04-30 09:18] VITALS: BP 146/100; PULSE 100; RESP 16; TEMP 98; O2SAT 98
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
[2018-04-30 09:50] VITALS: BP 146/100; PULSE 100; RESP 16; O2SAT 99
[2018-04-30] MEDS ORDERED: HALO2S PO (09:50)
[2018-04-30] MEDS ORDERED: CLOZ100T PO (09:50)
[2018-04-30] MEDS ORDERED: HALOPERIDOL LACTATE ORAL CONC 10 MG/5 ML CUP PO ONE (10:00)
== END 2018-04-30 10:26 | disposition home or self-care (01) ==
LOC: NEPD 09:12
DX: F25.1 Schizoaffective disorder, depressive type (principal); F17.210 Nicotine dependence, cigarettes, uncomplicated; Z76.0 Encounter for issue of repeat prescription
CPT/HCPCS: 99283